=== PATIENT | male | born 1955 | race Caucasian/White ===

== ENCOUNTER 2018-10-21 07:01 | Inpatient (IN) ==
[2018-10-21] MEDS ORDERED: IPRATROPIUM/ALBUTEROL 3 ML AMPUL.NEB NEB ONE ×2 (07:15→08:44)
[2018-10-21 07:45] LABS: Basophils # (Auto) 0 K/mcL (0.0-0.3); Basophils % (Auto) 0.4 % (0.0-2.0); Eosinophils # (Auto) 0.1 K/mcL (0.0-0.7); Eosinophils % (Auto) 2.3 % (0.0-7.0); Granulocytes % (Auto) 81.6 % (38.0-78.0); Lymphocytes # (Auto) 0.2 K/mcL (1.5-4.8); Lymphocytes % (Auto) 5.4 % (15.5-49.0); Mean Cell Volume 95.8 fL (80.0-100.0); Mean Corpuscular HGB Conc 32.7 g/dL (31.0-36.0); Monocytes # (Auto) 0.4 K/mcL (0.1-0.9); Monocytes % (Auto) 10.3 % (1.0-12.0); Platelet Count 87 K/mcL (140-440); RBC 4.02 M/mcL (4.50-5.90); Red Cell Distribution Width 15.1 % (11.5-14.5)
--- NOTE | 2018-10-21 08:09 | XRay Report ---
INDICATION: Dyspnea. Cough. TECHNIQUE: AP chest x-ray,portable semiupright COMPARISON: Previous chest x-rays dated 04/29/2015, 04/04/2015, 02/08/2015 FINDINGS:Previous median sternotomy. There is cardiomegaly is slightly worse than on previous examinations. Pulmonary vascularity is prominent. There are septal lines. Appearance is consistent with cardiomegaly and congestive heart failure. No pulmonary parenchymal consolidation. No evidence for pneumonia. IMPRESSION: 1. Cardiomegaly 2. Interstitial pulmonary edema 3. Findings are worse since 04/29/2015 Interpreted and Authenticated by: Miguel Dewey 10/21/18
[2018-10-21 08:15] LABS: ALT/SGPT 12 U/l (0-40); Albumin 3.8 gm/dL (3.2-5.2); Albumin/Globulin Ratio 1.4 (1.0-2.3); Alkaline Phosphatase 153 U/L (39-117); Blood Urea Nitrogen 15 mg/dl (8-23)
[2018-10-21] MEDS ORDERED: methylPREDNISolone SOD SUCC 125 MG/2 ML VIAL IV ONE (09:07)
[2018-10-21] MEDS ORDERED: FUROSEMIDE 40 MG/4 ML VIAL IV ONE (09:07)
--- NOTE | 2018-10-21 09:23 | Emergency Department Note ---
SOB HPI - General Chief Complaint: Shortness of Breath/Dyspnea Stated Complaint: Shortness of breath Time Seen by Provider: 10/21/18 07:39 Source: patient Mode of arrival: ambulatory Limitations: no limitations - History of Present Illness This pleasant 62-year-old male comes emergency room with coughing that is increased and worsened. With shortness of breath. He has some chronic bronchitis/COPD for which he has some chronic cough and phlegm but there is been no change in the color of his phlegm. He takes Symbicort and has a nebulizer machine but is out of nebulizer medication. He has been doing his normal wheezing. No chest pains with this or nausea or vomiting no fevers or chills or sweats. No recent exposures. No runny nose or nasal congestion or sore throat. REVIEW OF SYSTEMS: See above. No chest pains or palpitations. No nausea or vomiting No dysuria No headaches or dizziness No anxiety or depression. - Related Data Home Medications Medication Instructions Recorded Confirmed Aspirin [Drew Chewable Aspirin] 81 mg PO DAILY 02/05/15 04/29/15 Fluticasone/Salmeterol [Advair 1 puff INH BID 02/05/15 04/29/15 250-50 Diskus] Furosemide [Lasix] 80 mg PO DAILY 02/05/15 04/29/15 Ramipril [Altace] 5 mg PO DAILY 02/05/15 04/29/15 Spironolactone [Aldactone] 25 mg PO DAILY 02/05/15 04/29/15 Gabapentin [Neurontin] 100 - 200 mg PO TID 02/07/15 04/29/15 Iron Fum/Vit C/B12-If/FA [Ferocon 1 cap PO TIDCC 02/07/15 04/29/15 Capsule] Potassium Citrate [Potassium 10 meq PO TIDCC 02/07/15 04/29/15 Citrate ER] Rivaroxaban [Xarelto] 20 mg PO QPMCC 02/07/15 04/29/15 Metoprolol Tartrate [Lopressor] 50 mg PO BID 04/29/15 04/29/15 Previous Rx's Medication Instructions Recorded Carvedilol [Coreg] 25 mg PO BIDCC tablet 02/08/15 Digoxin [Lanoxin] 125 mcg PO MOWEFR #30 tablet 02/08/15 HYDROcodone/APAP 5/325MG [[place] 1 tab PO Q4HP PRN #14 tablet 03/21/15 5/325Mg] Allergies Allergy/AdvReac Type Severity Reaction Status Date / Time amiodarone Allergy Intermediate Rash Verified 10/21/18 07:03 Past Medical History - Past Medical History Medical history: Reports: atrial fibrillation (has been cardioverted in the past.), CHF, chronic anticoagulation (XARELTO), COPD (chronic bronchitis), coronary artery disease (has had a defibrillator placed.), hyperlipidemia, hypertension, myocardial infarction, other (anaphylactic reaction (2015)). Denies: cancer, CVA, DVT, DM, hypothyroidism, pneumonia, pulmonary embolus, TIA Psychiatric history: Denies: anxiety, depression Surgical history ED: Reports: coronary bypass (CABG), herniorrhaphy - Social History smoking status: Former smoker (quit approx 2009) Alcohol use: Reports: Heavy (6-7 beer/day 10.21.2018) Drug use: Reports: none. Denies: marijuana Physical Exam Limitations: no limitations General appearance: alert, in distress (With tight wheezing coughing and mildly short of breath.) Eye: Present: EOMI ENT: normal oropharynx, mucous membranes moist Neck: Present: trachea midline. Absent: lymphadenopathy, thyromegaly Chest: Present: symmetric chest wall rise Respiratory: Present: respiratory distress (Mild increased effort), rales/crackles (Coarseness and some crackles throughout.), wheezes (Mild to moderate. Throughout.), other (decrease in volume throughout.). Absent: stridor, accessory muscle use, prolonged expiratory phase Cardiovascular: Present: irregular rhythm (but normal rate.), other (very distant.). Absent: systolic murmur, diastolic murmur Abdominal: Present: soft. Absent: distention, tenderness, guarding, rebound, rigidity, organomegaly, mass Extremities: Absent: pedal edema, pretibial edema (except right pretibial and pedal areas.), calf tenderness Back: Absent: CVA tenderness (R), CVA tenderness (L), spinous process tenderness Neurological: Present: alert, oriented X3 Psychiatric: Present: flat affect, serious, poor eye contact (only mildly) Skin: Present: warm, dry Course Vital Signs Temperature 98.5 F 10/21/18 07:01 Pulse Rate 89 10/21/18 07:01 Respiratory Rate 24 H 10/21/18 07:01 Blood Pressure 97/74 10/21/18 07:01 Pulse Oximetry (%) 95 10/21/18 07:01 Temperature 98.5 F 10/21/18 07:01 Pulse Rate 90 10/21/18 07:30 Respiratory Rate 20 10/21/18 07:30 Blood Pressure 97/74 10/21/18 07:01 Pulse Oximetry (%) 95 10/21/18 07:01 Shortness of Breath/Dyspnea - [facility] Narrative Medical decision making narrative: 7:13 AM EKG, ACS labs, chest x-ray, DuoNeb, pro-calcitonin, lactic acid will be done because of his presentation with tight cough, wheezing, shortness of breath and medical history. EKG demonstrates old anterior MT, atrial fibrillation, flipped T waves in the lateral leads, IV conduction delay, low voltage, poor R wave progression but no specific changes from previous. 8:45 AM Initial DuoNeb was helpful and labs of come back with pancytopenia, lactic acid of 1.1, sodium 128 with chloride 89, bilirubin is 2.3 which is elevated but this is old and chronic. Alkaline phosphatase is 153 which is a new elevation for this. Pro-calcitonin was less than 0.10 and creatinine was 0.8. BNP was elevated into the 5000 range and previously was in the 1999. Chest x-ray demonstrates cardiomegaly with some interstitial pulmonary edema. 9:00 AM Second DuoNeb some helpful and reexam reveals decrease in wheezes and crackles i.e. with only 10-20% remaining of what he presented with. Blood pressure rem ains in the mid to upper 90s systolic which reportedly is common or normal for him. I discussed with Dr. Mcnally who will be taking over patient's care because of transfer at time of shift change. Consideration for Solu-Medrol IV which was ordered. Consideration for furosemide and a lower dose at 40 mg was discussed and ordered. Nursing staff also brought up the question from patient's of hyponatremia which has happened before quite significantly due to IV Lasix. She will let Dr. Mcnally now and discuss this. Patient's wanted us to know that patient has a nebulizer at home but has no medications for it currently. - Medical Records Medical records reviewed: Yes I reviewed the patient's medical records. - Lab Data Lab results reviewed: Yes I reviewed the patient's lab results. Result diagrams: 10/21/18 07:23 10/21/18 07:23 Lab Results 10/21/18 10/21/18 10/21/18 Range/Units 07:23 07:23 07:23 WBC 4.2 L (4.5-11.0) K/mcL RBC 4.02 L (4.50-5.90) M/mcL Hgb 12.6 L (13.5-16.5) g/dL Hct 38.5 L (41.0-55.0) % MCV 95.8 (80.0-100.0) fL MCH 31.3 (26.0-34.0) pg MCHC 32.7 (31.0-36.0) g/dL RDW 15.1 H (11.5-14.5) % Plt Count 87 L (140-440) K/mcL MPV 9.5 (7.4-10.4) fL Gran % 81.6 H (38.0-78.0) % Lymph % (Auto) 5.4 L (15.5-49.0) % [place] % (Auto) 10.3 (1.0-12.0) % Eos % (Auto) 2.3 (0.0-7.0) % Baso % (Auto) 0.4 (0.0-2.0) % Gran # 3.4 (1.8-8.0) K/mcL Lymph # (Auto) 0.2 L (1.5-4.8) K/mcL [place] # (Auto) 0.4 (0.1-0.9) K/mcL Eos # (Auto) 0.1 (0.0-0.7) K/mcL Baso # (Auto) 0 (0.0-0.3) K/mcL VBG Lactic Acid (0.5-2.0) mmol/L Sodium 128 L (133-145) mmol/L Potassium 3.8 (3.3-5.1) mmol/L Chloride 89 L (96-108) mmol/L Carbon Dioxide 27 (22-30) mmol/L Anion Gap 12.0 (8-16) BUN 15 (8-23) mg/dl Creatinine 0.8 (0.7-1.2) mg/dl GFR Calculation 96 Glucose 97 (70-105) mg/dL Calcium 9.0 (8.6-10.4) mg/dl Total Bilirubin 2.3 H (0.0-1.0) mg/dL AST 27 (0-37) U/l ALT 12 (0-40) U/l Alkaline Phosphatase 153 H (39-117) U/L Troponin T (0-0.03) ng/ml NT-Pro-B Natriuret Pep 5643.0 H (0-125) pg/ml Total Protein 6.5 (5.9-8.4) gm/dL Albumin 3.8 (3.2-5.2) gm/dL Globulin 2.7 (2.2-3.7) gm/dL Albumin/Globulin Ratio 1.4 (1.0-2.3) Procalcitonin < 0.10 (<0.10) ng/mL 10/21/18 10/21/18 Range/Units 07:23 07:23 WBC (4.5-11.0) K/mcL RBC (4.50-5.90) M/mcL Hgb (13.5-16.5) g/dL Hct (41.0-55.0) % MCV (80.0-100.0) fL MCH (26.0-34.0) pg MCHC (31.0-36.0) g/dL RDW (11.5-14.5) % Plt Count (140-440) K/mcL MPV (7.4-10.4) fL Gran % (38.0-78.0) % Lymph % (Auto) (15.5-49.0) % [place] % (Auto) (1.0-12.0) % Eos % (Auto) (0.0-7.0) % Baso % (Auto) (0.0-2.0) % Gran # (1.8-8.0) K/mcL Lymph # (Auto) (1.5-4.8) K/mcL [place] # (Auto) (0.1-0.9) K/mcL Eos # (Auto) (0.0-0.7) K/mcL Baso # (Auto) (0.0-0.3) K/mcL VBG Lactic Acid 1.1 (0.5-2.0) mmol/L Sodium (133-145) mmol/L Potassium (3.3-5.1) mmol/L Chloride (96-108) mmol/L Carbon Dioxide (22-30) mmol/L Anion Gap (8-16) BUN (8-23) mg/dl Creatinine (0.7-1.2) mg/dl GFR Calculation Glucose (70-105) mg/dL Calcium (8.6-10.4) mg/dl Total Bilirubin (0.0-1.0) mg/dL AST (0-37) U/l ALT (0-40) U/l Alkaline Phosphatase (39-117) U/L Troponin T 0.01 (0-0.03) ng/ml NT-Pro-B Natriuret Pep (0-125) pg/ml Total Protein (5.9-8.4) gm/dL Albumin (3.2-5.2) gm/dL Globulin (2.2-3.7) gm/dL Albumin/Globulin Ratio (1.0-2.3) Procalcitonin (<0.10) ng/mL - Radiology Data Radiology results reviewed: Yes I reviewed the patient's radiology results. - EKG Data EKG results narrative: Old anterior MT, atrial fibrillation, no lateral lead flipped T's, intraventricular conduction delay, low voltage, poor R wave progression, but no specific changes. This EKG will be read by a go cart mechanic. Disposition Pt seen by TURKEY CLEANER/PA only: No Disposition: Still a Patient Condition: Fair Referrals: Marisol Rowan MD [Primary Care Provider] -
--- NOTE | 2018-10-21 10:37 | Emergency Department Note ---
SOB HPI - General Chief Complaint: Shortness of Breath/Dyspnea Stated Complaint: Shortness of breath Time Seen by Provider: 10/21/18 07:39 Source: patient Mode of arrival: ambulatory Limitations: no limitations - History of Present Illness Patient is checked out to me by Dr. Finn at shift change. He continues to have shortness of breath despite 2 breathing treatments with DuoNeb. Solu- Medrol was given as well furosemide. Per nursing report is concerned that extra furosemide because his chronic low sodium to drop even further and cause significant confusion as it has in the past He is to see Dr. Martinez in [place] for cardiology but he has since retired. He does have a new visit plan though with a new doctor - Related Data Home Medications Medication Instructions Recorded Confirmed Aspirin [Drew Chewable Aspirin] 81 mg PO DAILY 02/05/15 10/21/18 Fluticasone/Salmeterol [Advair 1 puff INH BID 02/05/15 04/29/15 250-50 Diskus] Furosemide [Lasix] 80 mg PO DAILY 02/05/15 04/29/15 Ramipril [Altace] 5 mg PO DAILY 02/05/15 04/29/15 Spironolactone [Aldactone] 25 mg PO DAILY 02/05/15 04/29/15 Gabapentin [Neurontin] 100 - 200 mg PO TID 02/07/15 04/29/15 Iron Fum/Vit C/B12-If/FA [Ferocon 1 cap PO TIDCC 02/07/15 04/29/15 Capsule] Potassium Citrate [Potassium 10 meq PO TIDCC 02/07/15 04/29/15 Citrate ER] Rivaroxaban [Xarelto] 20 mg PO QPMCC 02/07/15 04/29/15 Metoprolol Tartrate [Lopressor] 50 mg PO BID 04/29/15 04/29/15 Previous Rx's Medication Instructions Recorded Carvedilol [Coreg] 25 mg PO BIDCC tablet 02/08/15 Digoxin [Lanoxin] 125 mcg PO MOWEFR #30 tablet 02/08/15 HYDROcodone/APAP 5/325MG [[place] 1 tab PO Q4HP PRN #14 tablet 03/21/15 5/325Mg] Allergies Allergy/AdvReac Type Severity Reaction Status Date / Time amiodarone Allergy Intermediate Rash Verified 10/21/18 07:03 Past Medical History - Past Medical History Medical history: Reports: atrial fibrillation (has been cardioverted in the past.), CHF, chronic anticoagulation (XARELTO), COPD (chronic bronchitis), coronary artery disease (has had a defibrillator placed.), hyperlipidemia, hypertension, myocardial infarction (With cardiomyopathy), other (anaphylactic reaction (2015)). Denies: cancer, CVA, DVT, DM, hypothyroidism, pneumonia, pulmonary embolus, TIA Psychiatric history: Denies: anxiety, depression Surgical history ED: Reports: coronary bypass (CABG), herniorrhaphy, pacemaker/AICD - Social History smoking status: Former smoker (quit approx 2009) Alcohol use: Reports: Heavy (6-7 beer/day 10.21.2018) Drug use: Reports: none. Denies: marijuana Physical Exam On repeat exam patient's lungs are much more clear but he does have significant tachypneic and tachycardia. He can speak in full sentences but does have to pause for breath. He appears globally weak and his blood pressures are low n ormal Limitations: no limitations General appearance: alert, in distress (With tight wheezing coughing and mildly short of breath.) Course Vital Signs Temperature 98.5 F 10/21/18 07:01 Pulse Rate 89 10/21/18 07:01 Respiratory Rate 24 H 10/21/18 07:01 Blood Pressure 97/74 10/21/18 07:01 Pulse Oximetry (%) 95 10/21/18 07:01 Temperature 98.5 F 10/21/18 07:01 Pulse Rate 90 10/21/18 07:30 Respiratory Rate 20 10/21/18 07:30 Blood Pressure 97/74 10/21/18 07:01 Pulse Oximetry (%) 95 10/21/18 07:01 Shortness of Breath/Dyspnea - Lab Data Lab results reviewed: Yes I reviewed the patient's lab results. Result diagrams: 10/21/18 07:23 10/21/18 07:23 Lab Results 10/21/18 10/21/18 10/21/18 Range/Units 07:23 07:23 07:23 WBC 4.2 L (4.5-11.0) K/mcL RBC 4.02 L (4.50-5.90) M/mcL Hgb 12.6 L (13.5-16.5) g/dL Hct 38.5 L (41.0-55.0) % MCV 95.8 (80.0-100.0) fL MCH 31.3 (26.0-34.0) pg MCHC 32.7 (31.0-36.0) g/dL RDW 15.1 H (11.5-14.5) % Plt Count 87 L (140-440) K/mcL MPV 9.5 (7.4-10.4) fL Gran % 81.6 H (38.0-78.0) % Lymph % (Auto) 5.4 L (15.5-49.0) % [facility] % (Auto) 10.3 (1.0-12.0) % Eos % (Auto) 2.3 (0.0-7.0) % Baso % (Auto) 0.4 (0.0-2.0) % Gran # 3.4 (1.8-8.0) K/mcL Lymph # (Auto) 0.2 L (1.5-4.8) K/mcL [facility] # (Auto) 0.4 (0.1-0.9) K/mcL Eos # (Auto) 0.1 (0.0-0.7) K/mcL Baso # (Auto) 0 (0.0-0.3) K/mcL VBG Lactic Acid (0.5-2.0) mmol/L Sodium 128 L (133-145) mmol/L Potassium 3.8 (3.3-5.1) mmol/L Chloride 89 L (96-108) mmol/L Carbon Dioxide 27 (22-30) mmol/L Anion Gap 12.0 (8-16) BUN 15 (8-23) mg/dl Creatinine 0.8 (0.7-1.2) mg/dl GFR Calculation 96 Glucose 97 (70-105) mg/dL Calcium 9.0 (8.6-10.4) mg/dl Total Bilirubin 2.3 H (0.0-1.0) mg/dL AST 27 (0-37) U/l ALT 12 (0-40) U/l Alkaline Phosphatase 153 H (39-117) U/L Troponin T (0-0.03) ng/ml NT-Pro-B Natriuret Pep 5643.0 H (0-125) pg/ml Total Protein 6.5 (5.9-8.4) gm/dL Albumin 3.8 (3.2-5.2) gm/dL Globulin 2.7 (2.2-3.7) gm/dL Albumin/Globulin Ratio 1.4 (1.0-2.3) Procalcitonin < 0.10 (<0.10) ng/mL Digoxin Dose Digox Last Dose Time 10/21/18 10/21/18 10/21/18 Range/Units 07:23 07:23 07:23 WBC (4.5-11.0) K/mcL RBC (4.50-5.90) M/mcL Hgb (13.5-16.5) g/dL Hct (41.0-55.0) % MCV (80.0-100.0) fL MCH (26.0-34.0) pg MCHC (31.0-36.0) g/dL RDW (11.5-14.5) % Plt Count (140-440) K/mcL MPV (7.4-10.4) fL Gran % (38.0-78.0) % Lymph % (Auto) (15.5-49.0) % [facility] % (Auto) (1.0-12.0) % Eos % (Auto) (0.0-7.0) % Baso % (Auto) (0.0-2.0) % Gran # (1.8-8.0) K/mcL Lymph # (Auto) (1.5-4.8) K/mcL [facility] # (Auto) (0.1-0.9) K/mcL Eos # (Auto) (0.0-0.7) K/mcL Baso # (Auto) (0.0-0.3) K/mcL VBG Lactic Acid 1.1 (0.5-2.0) mmol/L Sodium (133-145) mmol/L Potassium (3.3-5.1) mmol/L Chloride (96-108) mmol/L Carbon Dioxide (22-30) mmol/L Anion Gap (8-16) BUN (8-23) mg/dl Creatinine (0.7-1.2) mg/dl GFR Calculation Glucose (70-105) mg/dL Calcium (8.6-10.4) mg/dl Total Bilirubin (0.0-1.0) mg/dL AST (0-37) U/l ALT (0-40) U/l Alkaline Phosphatase (39-117) U/L Troponin T 0.01 (0-0.03) ng/ml NT-Pro-B Natriuret Pep (0-125) pg/ml Total Protein (5.9-8.4) gm/dL Albumin (3.2-5.2) gm/dL Globulin (2.2-3.7) gm/dL Albumin/Globulin Ratio (1.0-2.3) Procalcitonin (<0.10) ng/mL Digoxin Dose Not Reportable Digox Last Dose Time Not Reportable - Radiology Data Radiology results reviewed: Yes I reviewed the patient's radiology results. Chest x-ray shows no acute infiltrate but stigmata of cardiomegaly, CABG, and pacemaker - EKG Data EKG attestation: Yes I reviewed and interpreted this EKG. EKG results narrative: I briefly reviewed his EKG-atrial fibrillation with multiple abnormalities. I do not see evidence of acute ischemia Disposition Pt seen by REACHER/PA only: No Clinical Impression: Acute exacerbation of chronic obstructive airways disease Congestive heart failure Qualifiers: Heart failure type: unspecified Heart failure chronicity: acute on chronic Qualified Code(s): I50.9 - Heart failure, unspecified Summary: Although he has improved with furosemide and DuoNeb he is still short of breath weak tachycardic and tachypneic. Perhaps mildly hypotensive as well. I do not feel comfortable letting him go home in this state-he needs careful treatment with monitoring because of fragile sodium status for congestive heart failure and COPD exacerbation I discussed the situation with Dr. Maguire, who agreed to accept the patient for further care and evaluation. Disposition: Xfer As Inpt ([facility]) Condition: Fair Referrals: Marisol Rowan MD [Primary Care Provider] -
--- NOTE | 2018-10-21 12:08 | Internal Med History&Physical ---
Medical - H&P: [facility] Patient information: Note initiated : 10/21/18 at 12:03 pm Service Date, if different from initiated Date: [] Patient: Irvin Cannon a 62 y/o M admitted on for SOB . Chief Complaint: [] History of present illness: Mr. Cannon is a 62 year old M Resents with shortness of breath and cough. Patient has history of systolic heart failure COPD CAD hypertension peripheral vascular disease. He states that about 3 days ago he started developing shortness of breath which is progressed every day. He also developed a cough couple days ago which was clear and milky. He is denied any fevers or chills. No mucopurulent sputum. He states his legs especially his right leg have become more swollen for the pas t couple weeks. He feels his weight has been stable at 185. In the ED is lungs sounds per ED staff included rales and wheezing. He received several DuoNeb treatments the first when he said did not make any difference. He also received Lasix. His lung sounds have improved and his breathing is im proved. Denies chest pain other than a little bit of chest wall from the cough. But given his continued labored breathing felt that he needed to be treated in the hospital. Patient states he has been taking all his medications and has not missed any. He does admit to orthopnea worsening over the past couple days, he has had sleep almost upright. He has thrombocytopenia and is aware that he has low platelets. I discussed alcohol cessation with him. Review of Systems: Pertinent positives as above. Denies headache/fever/chills/nausea/vomiting/chest or abdominal pain/diarrhea. Remaining 10 point review of systems reviewed negative Medical - H&P: [facility] Medical history: Medical History (Last Updated 10/21/18 @ 09:35 by Pipo Finn DO) Chronic anticoagulation (Acute) Atrial fibrillation, chronic (Acute) Hypertension, essential (Acute) Hyperlipidemia (Acute) History of myocardial infarction (Acute) History of CHF (congestive heart failure) (Acute) Acute hepatitis (Acute) Liver function failure (Acute) Heart failure, systolic, with acute decompensation (Acute) Abdominal pain (Acute) Muscle strain (Acute) Allergic reaction (Acute) Allergic reaction (Acute) Anaphylaxis (Acute) Surgical history: CABG Defibrillator Hernia repair Family history: Mother heart disease Father heart disease Social history: Patient quit smoking 5 years ago Drinks at least 6-7 beers per day Denies drug use Lives at home with his Medical - H&P: Meds Home Medications Medication Instructions Recorded Confirmed Type Aspirin [Drew Chewable Aspirin] 81 mg PO DAILY 02/05/15 10/21/18 History Fluticasone/Salmeterol [Advair 1 puff INH BID 02/05/15 04/29/15 History 250-50 Diskus] Furosemide [Lasix] 40 mg PO DAILY 02/05/15 10/21/18 History Ramipril [Altace] 5 mg PO DAILY 02/05/15 04/29/15 History Spironolactone [Aldactone] 25 mg PO DAILY 02/05/15 04/29/15 History Gabapentin [Neurontin] 100 - 200 mg PO TID 02/07/15 04/29/15 History Iron Fum/Vit C/B12-If/FA [Ferocon 1 cap PO TIDCC 02/07/15 04/29/15 History Capsule] Potassium Citrate [Potassium 10 meq PO DAILY 02/07/15 10/21/18 History Citrate ER] Rivaroxaban [Xarelto] 20 mg PO DAILY 02/07/15 10/21/18 History HYDROcodone/APAP 5/325MG [[place] 1 tab PO Q4HP PRN #14 tablet 03/21/15 04/29/15 Rx 5/325Mg] Metoprolol Tartrate [Lopressor] 50 mg PO BID 04/29/15 04/29/15 History Budesonide/Formoterol Fumarate 2 puff IH BID 10/21/18 10/21/18 History [Symbicort 160-4.5 Mcg Inhaler] Carvedilol [Coreg] 25 mg PO BID 10/21/18 10/21/18 History Digoxin [Lanoxin] 125 mcg PO DAILY 10/21/18 10/21/18 History Doxycycline Hyclate [Vibramycin] 100 mg PO DAILY 10/21/18 10/21/18 History Magnesium Oxide 400 mg PO DAILY 10/21/18 10/21/18 History Sacubitril/Valsartan [Entresto 24 1 tab PO BID 10/21/18 10/21/18 History mg-26 mg Tablet] Simvastatin [Zocor] 20 mg PO HS 10/21/18 10/21/18 History Zolpidem Tartrate [Ambien] 10 mg PO HSP PRN 10/21/18 10/21/18 History Allergies Allergy/AdvReac Type Severity Reaction Status Date / Time amiodarone Allergy Intermediate Rash Verified 10/21/18 07:03 IV antibiotics Allergy Uncoded 10/21/18 11:10 Medical - H&P: Exam - Constitutional Vitals: Temp Pulse Resp BP Pulse Ox 98.5 F 150 H 32 H 103/71 95 10/21/18 07:01 10/21/18 09:46 10/21/18 11:42 10/21/18 09:46 10/21/18 09:46 Exam: General: Alert, Awake, No acute Distress Eyes/N/T: EOMI, PEERL, Head/Neck: neck supple, normocephalic atraumatic CV: Irregular, normal s1/s2 Pulm: Diminished breath sounds at the bases, prolonged expiratory phase Abd: soft, nontender, protuberant+BS x4 Ext: no clubbing/cyanosis, b/l LE 2-3+ Neuro: Alert, no focal deficits, moves all extremities, CN 2-12 grossly intact, symmetrical strength b/l upper/lower, sensations intact b/l upper/lower Skin: warm/dry, mild jaundice Medical - H&P: Reslt - Labs CBC & Chem 7: 10/21/18 07:23 10/21/18 07:23 Labs: Short CBC 10/21/18 Range/Units 07:23 WBC 4.2 L (4.5-11.0) K/mcL Hgb 12.6 L (13.5-16.5) g/dL Hct 38.5 L (41.0-55.0) % Plt Count 87 L (140-440) K/mcL BMP 10/21/18 07:23 Sodium 128 L Potassium 3.8 Chloride 89 L Carbon Dioxide 27 BUN 15 Creatinine 0.8 Glucose 97 Calcium 9.0 Cardiac Enzymes 10/21/18 Range/Units 07:23 Troponin T 0.01 (0-0.03) ng/ml Liver Function 10/21/18 Range/Units 07:23 Total Bilirubin 2.3 H (0.0-1.0) mg/dL AST 27 (0-37) U/l ALT 12 (0-40) U/l Alkaline Phosphatase 153 H (39-117) U/L Albumin 3.8 (3.2-5.2) gm/dL - Impressions Chest x-ray with pulmonary edema Medical - H&P: A/P - Narrative A/P Narrative: A: *Acute on chronic systolic heart failure: Likely from continued alcohol abuse *Pulmonary edema: *Dyspnea: 2/2 above *Afib: On Xarelto and beta-paola *HTN: *COPD(not on home O2): *CAD w/CABG: *iCMP, w/defibrillator *Peripheral vascular disease: *Alcohol abuse: With likely some degree of liver disease with elevated bilirubin and thrombocytopenia. *Hyponatremia, chronic: likley from etoh abuse P: -IV Lasix -Monitor I's and O's, weights, UOP -cont home Dig -Clarify home medications, what BB and other HTN meds -cont home ASA/Satatin -CIWA and prn benzo, vitamins - - -Alcohol cessation -LASHON's -ppx: Xarelto
[2018-10-21] MEDS ORDERED: POLYETHYLENE GLYCOL 3350 17 GM PACKET PO PRN (13:01)
[2018-10-21] MEDS ORDERED: IPRATROPIUM/ALBUTEROL 3 ML AMPUL.NEB NEB PRN (13:01)
[2018-10-21] MEDS ORDERED: ACETAMINOPHEN 325 MG TABLET PO PRN (13:01)
[2018-10-21] MEDS ORDERED: ONDANSETRON 4 MG/2 ML VIAL IV PRN (13:01)
[2018-10-21] MEDS ORDERED: ZOLPIDEM TARTRATE 10 MG PO PRN (13:01)
[2018-10-21] MEDS ORDERED: POTASSIUM CHLORIDE 40 MEQ in DEXTROSE 5% IN WATER 500 ML IV PRN (13:01)
[2018-10-21] MEDS ORDERED: METOPROLOL TARTRATE 5 MG/5 ML VIAL IV PRN (13:01)
[2018-10-21] MEDS ORDERED: PROCHLORPERAZINE 10 MG/2 ML VIAL IV PRN (13:01)
[2018-10-21] MEDS ORDERED: POTASSIUM CHLORIDE 20 MEQ TABLET PO PRN (13:01)
[2018-10-21] MEDS ORDERED: SENNOSIDES 1 TABLET PO PRN (13:01)
[2018-10-21] MEDS ORDERED: cloNIDine HCL 0.1 MG TABLET PO PRN (13:01)
[2018-10-21] MEDS ORDERED: LORazepam 2 MG/ML VIAL IV PRN (13:01)
[2018-10-21] MEDS ORDERED: MAGNESIUM SULFATE 2 GM/50 ML BAG IV PRN (13:01)
[2018-10-21] MEDS: chlordiazePOXIDE 25 MG CAPSULE PO PRN (14:25)
[2018-10-21] MEDS: MULTIVIT,THER IRON,CA,FA & MIN 1 TABLET PO SCH (14:25)
[2018-10-21] MEDS: FOLIC ACID 1 MG TABLET PO SCH (14:25)
[2018-10-21] MEDS: 0.9 % SODIUM CHLORIDE 10 ML SYRINGE IV SCH ×4 (14:26→21:49)
[2018-10-21] MEDS: THIAMINE 100 MG TABLET PO SCH (14:26)
[2018-10-21] MEDS ORDERED: ZOLPIDEM 5 MG TABLET PO PRN (15:15)
[2018-10-21] MEDS: FUROSEMIDE 40 MG/4 ML VIAL IV SCH (17:51)
[2018-10-21] MEDS: SODIUM CHLORIDE 1 GM TABLET PO SCH ×2 (17:51→21:48)
[2018-10-21] MEDS ORDERED: CARVEDILOL 12.5 MG TABLET PO SCH (21:00)
[2018-10-21] MEDS ORDERED: VALSARTAN PO SCH (21:00)
[2018-10-21] MEDS ORDERED: SACUBITRIL PO SCH (21:00)
[2018-10-21] MEDS: Budesonide/Formoterol Fumarate [Symbicort 160-4.5 MCG] Inhaler INH SCH (21:48)
[2018-10-21] MEDS: SIMVASTATIN 20 MG TABLET PO SCH (21:48)
[2018-10-22 05:30] LABS: Basophils # (Auto) 0 K/mcL (0.0-0.3); Basophils % (Auto) 0 % (0.0-2.0); Eosinophils # (Auto) 0 K/mcL (0.0-0.7); Eosinophils % (Auto) 0 % (0.0-7.0); Granulocytes % (Auto) 94.6 % (38.0-78.0); Lymphocytes # (Auto) 0.1 K/mcL (1.5-4.8); Lymphocytes % (Auto) 2.7 % (15.5-49.0); Mean Cell Volume 96.3 fL (80.0-100.0); Mean Corpuscular HGB Conc 32.9 g/dL (31.0-36.0); Monocytes # (Auto) 0.1 K/mcL (0.1-0.9); Monocytes % (Auto) 2.7 % (1.0-12.0); Platelet Count 98 K/mcL (140-440); RBC 3.88 M/mcL (4.50-5.90); Red Cell Distribution Width 15.1 % (11.5-14.5)
[2018-10-22] MEDS: 0.9 % SODIUM CHLORIDE 10 ML SYRINGE IV SCH ×6 (05:55→20:39)
[2018-10-22 06:14] LABS: ALT/SGPT 12 U/l (0-40); Albumin 3.6 gm/dL (3.2-5.2); Albumin/Globulin Ratio 1.4 (1.0-2.3); Alkaline Phosphatase 153 U/L (39-117); Bilirubin,Direct 0.9 mg/dL (0.0-0.3); Blood Urea Nitrogen 21 mg/dl (8-23); Gamma Glutamyl Transpeptidase 169 U/L (8-61); Uric Acid 6.8 mg/dL (2.5-8.0)
--- NOTE | 2018-10-22 07:24 | Internal Med Progress Note ---
Medical - PN: Subj Patient information: Note initiated : 10/22/18 at 7:20 am Service Date, if different from initiated Date: [] Patient: Irvin Cannon a 62 y/o M admitted on 10/21/18 for SOB . Chief Complaint: [] Interval history: Mr. Cannon is a 62 year old M Resents with shortness of breath and cough. Patient has history of systolic heart failure COPD CAD hypertension peripheral vascular disease. He states that about 3 days ago he started developing shortness of breath which is progressed every day. He also developed a cough couple days ago which was clear and milky. He is denied any fevers or chills. No mucopurulent sputum. He states his legs especially his right leg have become more swollen for the past couple weeks. He feels his weight has been stable at 185. In the ED is lungs sounds per ED staff included rales and wheezing. He received several DuoNeb treatments the first when he said did not make any difference. He also received Lasix. His lung sounds have improved and his breathing is impr mata. Denies chest pain other than a little bit of chest wall from the cough. But given his continued labored breathing felt that he needed to be treated in the hospital. Patient states he has been taking all his medications and has not missed any. He does admit to orthopnea worsening over the past couple days, he has had sleep almost upright. He has thrombocytopenia and is aware that he has low platelets. I discussed alcohol cessation with him. 10/22 Feeling much better today. Had good diuresis. Denies any shortness of breath at this time. Does have continued cough but is improving. Low CIWA scores Review of Systems: denies headache/fever/chills/nausea/vomiting/chest or abdominal pain/diarrhea. Otherwise see above. - Constitutional Vitals: Vital Signs Temp Pulse Resp BP Pulse Ox 98.1 F 111 H 18 93/55 92 10/21/18 16:15 10/21/18 18:10 10/21/18 18:10 10/22/18 04:01 10/22/18 04:01 Period Temp Pulse Resp BP Sys/Cheema Pulse Ox Last 24 Hr 98.0 F-98.5 F 62-150 15-32 85-115/52-87 90-100 Intake and Output 10/21/18 10/22/18 10/22/18 21:59 05:59 13:59 Intake Total 240 Output Total 500 1500 Balance -260 -1500 Weight 83.915 kg Intake & Output: Intake & Output 10/21/18 10/22/18 10/22/18 21:59 05:59 13:59 Intake Total 240 Output Total 500 1500 Balance -260 -1500 Weight 83.915 kg Intake: Oral 240 Output: Void Amount 500 1500 Other: Meal Dinner Percent of Meal Consumed 100% Feeding Ability Independent # Voids 1 Exam: General: Alert, Awake, No acute Distress Eyes/N/T: EOMI, Head/Neck: neck supple, CV: Irregular, normal s1/s2 Pulm: better aeration, mild rales and occasional wheeze, prolonged expiratory phase Abd: soft, nontender, protuberant+BS x4 Ext: no clubbing/cyanosis, b/l LE 1+ much improved Neuro: Alert, no focal deficits, moves all extremities, Skin: warm/dry, mild jaundice Medical - PN: Obj Da - Labs CBC & Chem 7: 10/22/18 03:35 10/22/18 03:35 Labs: Abnormal Lab Results 10/22/18 10/22/18 10/21/18 03:35 03:35 07:23 WBC 3.8 L RBC 3.88 L Hgb 12.3 L Hct 37.3 L RDW 15.1 H Plt Count 98 L Gran % 94.6 H Lymph % (Auto) 2.7 L Lymph # (Auto) 0.1 L Sodium 128 L Chloride 92 L 89 L Glucose 138 H Total Bilirubin 2.0 H 2.3 H Direct Bilirubin 0.9 H GGT 169 H Alkaline Phosphatase 153 H 153 H NT-Pro-B Natriuret Pep 5643.0 H 10/21/18 07:23 WBC 4.2 L RBC 4.02 L Hgb 12.6 L Hct 38.5 L RDW 15.1 H Plt Count 87 L Gran % 81.6 H Lymph % (Auto) 5.4 L Lymph # (Auto) 0.2 L Sodium Chloride Glucose Total Bilirubin Direct Bilirubin GGT Alkaline Phosphatase NT-Pro-B Natriuret Pep Meds: Medications Acetaminophen (Tylenol) 650 mg PO Q6HP PRN PRN Reason: PAIN/FEVER > 101 Albuterol/Ipratropium (Duoneb) 3 ml NEB Q4HP PRN PRN Reason: Shortness Of Breath Aspirin (Aspirin) 81 mg PO DAILY [facility] Carvedilol (Coreg) 25 mg PO BID [facility] Last Admin: 10/21/18 21:48 Dose: 25 mg Documented by: Chlordiazepoxide HCl (Librium) 50 mg PO Q4HP PRN PRN Reason: Alcohol Withdrawal Last Admin: 10/21/18 14:25 Dose: 50 mg Documented by: Clonidine HCl (Catapres) 0.1 mg PO Q4HP PRN PRN Reason: Alcohol Withdrawal Digoxin (Lanoxin) 125 mcg PO DAILY [facility] Folic Acid (Folic Acid) 1 mg PO DAILY [facility] Last Admin: 10/21/18 14:25 Dose: 1 mg Documented by: Furosemide (Lasix) 40 mg IV BIDD [facility] Last Admin: 10/21/18 17:51 Dose: 40 mg Documented by: Potassium Chloride 40 meq/ (Dextrose) 520 mls @ 130 mls/hr IV ONCE PRN PRN Reason: Potassium < 3 Magnesium Sulfate (Magnesium Sulfate) 2 gm in 50 mls @ 50 mls/hr IV ONCE PRN PRN Reason: Magnesium </= 1.6 Iron Carb/Multivit/Condon/Folic Acid (Multivitamin W/Minerals) 1 tab PO DAILY [facility] Last Admin: 10/21/18 14:25 Dose: 1 tab Documented by: Lorazepam (Ativan) 0 mg IV Q4HP PRN; Protocol PRN Reason: Alcohol Withdrawal Magnesium Oxide (Magnesium Oxide) 400 mg PO DAILY [facility] Metoprolol Tartrate (Lopressor) 5 mg IV Q2HP PRN PRN Reason: Tachyarrhythmias HR>110 Last Admin: 10/21/18 17:47 Dose: 5 mg Documented by: Ondansetron HCl (Zofran) 4 mg IV Q4HP PRN PRN Reason: Nausea And Vomiting Budesonide/Formoterol Fumarate [Symbicort 160-4.5 Mcg] Inhaler 2 dose INH BID [facility] Last Admin: 10/21/18 21:48 Dose: Not Given Documented by: Sacubitril/Valsartan [Entresto 24 Mg-26 Mg] Tablet 1 dose PO BID [facility] Last Admin: 10/21/18 21:48 Dose: Not Given Documented by: Polyethylene Glycol (Miralax) 17 gm PO DAILYP PRN PRN Reason: Constipation Potassium Chloride (Kdur) 40 meq PO ONCE PRN PRN Reason: Potssium is 3-3.5 Potassium Chloride (Kdur) 40 meq PO ONCE PRN PRN Reason: Potassium < 3 Potassium Citrate (Potassium Citrate) 10 meq PO QAC [facility] Prochlorperazine (Compazine) 10 mg IV Q6HP PRN PRN Reason: Nausea And Vomiting Rivaroxaban (Xarelto) 20 mg PO DAILY [facility] Senna (Senokot) 2 tab PO HSP PRN PRN Reason: Constipation Simvastatin (Zocor) 20 mg PO HS [facility] Last Admin: 10/21/18 21:48 Dose: 20 mg Documented by: Sodium Chloride (Saline Flush) 10 ml IV Q8 [facility] Last Admin: 10/22/18 05:55 Dose: 10 ml Documented by: Sodium Chloride (Saline Flush) 10 ml IV Q8 [facility] Last Admin: 10/22/18 05:55 Dose: Not Given Documented by: Sodium Chloride (Sodium Chloride) 1 gm PO TID [facility] Stop: 10/22/18 09:01 Last Admin: 10/21/18 21:48 Dose: 1 gm Documented by: Thiamine HCl (Vitamin B1) 100 mg PO QDAY [facility] Last Admin: 10/21/18 14:26 Dose: 100 mg Documented by: Zolpidem Tartrate (Ambien) 10 mg PO HSP PRN PRN Reason: Insomnia Medical - PN: A/P - Time Spent With Patient Total time spent is greater than 50% in coordination of care (as documented) at patient's floor/unit and/or counseling patient: - Narrative A/P Narrative: A: *Acute on chronic systolic heart failure: pt continuing to abuse alcohol -good diuresis *Pulmonary edema: *Dyspnea: 2/2 above *Afib: On Xarelto and beta-paola *HTN: *COPD(not on home O2): *CAD w/CABG: *iCMP, w/defibrillator: *Peripheral vascular disease: *Alcohol abuse: With likely some degree of liver disease with elevated bilirubin and thrombocytopenia. *Hyponatremia, chronic: likely from chronic etoh with poor diet -improved P: -IV Lasix transition to PO -Monitor I's and O's, weights, UOP -cont home Dig -Clarify home medications, what BB is he on (coreg or lopressor ) and other HTN meds, reduce meds given low BP -cont home ASA/Satatin -CIWA and prn benzo, vitamins - -Alcohol cessation counseling -LASHON's -ppx: Xarelto Medical - PN: Qual - VTE Deep Vein Thrombosis/Pulmonary Embolism Present on Admission: No
[2018-10-22] MEDS: MAGNESIUM OXIDE 400 MG TABLET PO SCH (08:40)
[2018-10-22] MEDS: ASPIRIN 81 MG TAB.CHEW PO SCH (08:40)
[2018-10-22] MEDS: MULTIVIT,THER IRON,CA,FA & MIN 1 TABLET PO SCH (08:40)
[2018-10-22] MEDS: FOLIC ACID 1 MG TABLET PO SCH (08:41)
[2018-10-22] MEDS: FUROSEMIDE 40 MG/4 ML VIAL IV SCH ×2 (08:41→16:00)
[2018-10-22] MEDS: DIGOXIN 125 MCG TABLET PO SCH (08:41)
[2018-10-22] MEDS: POTASSIUM CHLORIDE 20 MEQ TABLET PO PRN (08:43)
[2018-10-22] MEDS: THIAMINE 100 MG TABLET PO SCH (10:00)
[2018-10-22] MEDS: RIVAROXABAN 20 MG TABLET PO SCH (10:00)
[2018-10-22] MEDS: SODIUM CHLORIDE 1 GM TABLET PO SCH (10:00)
[2018-10-22] MEDS: Budesonide/Formoterol Fumarate [Symbicort 160-4.5 MCG] Inhaler INH SCH ×2 (10:01→20:39)
[2018-10-22] MEDS: POTASSIUM CITRATE 10 MEQ TAB.XL.24H PO SCH (10:02)
[2018-10-22] MEDS: METOPROLOL TARTRATE 25 MG TABLET PO SCH ×2 (10:04→20:38)
[2018-10-22] MEDS: SIMVASTATIN 20 MG TABLET PO SCH (20:39)
[2018-10-22] MEDS: chlordiazePOXIDE 25 MG CAPSULE PO PRN (20:40)
[2018-10-23 05:41] LABS: Basophils # (Auto) 0 K/mcL (0.0-0.3); Basophils % (Auto) 0 % (0.0-2.0); Eosinophils # (Auto) 0 K/mcL (0.0-0.7); Eosinophils % (Auto) 0 % (0.0-7.0); Lymphocytes # (Auto) 0.2 K/mcL (1.5-4.8); Lymphocytes % (Auto) 2.5 % (15.5-49.0); Mean Corpuscular HGB Conc 32.5 g/dL (31.0-36.0); Monocytes # (Auto) 0.5 K/mcL (0.1-0.9); Monocytes % (Auto) 6.5 % (1.0-12.0); Platelet Count 124 K/mcL (140-440); RBC 4.06 M/mcL (4.50-5.90); Red Cell Distribution Width 15.2 % (11.5-14.5)
[2018-10-23] MEDS: 0.9 % SODIUM CHLORIDE 10 ML SYRINGE IV SCH ×2 (05:45)
[2018-10-23 06:17] LABS: ALT/SGPT 17 U/l (0-40); Albumin 3.7 gm/dL (3.2-5.2); Albumin/Globulin Ratio 1.3 (1.0-2.3); Alkaline Phosphatase 140 U/L (39-117); Bilirubin,Direct 0.6 mg/dL (0.0-0.3); Blood Urea Nitrogen 28 mg/dl (8-23); Gamma Glutamyl Transpeptidase 164 U/L (8-61); Uric Acid 7.4 mg/dL (2.5-8.0)
[2018-10-23] MEDS: Budesonide/Formoterol Fumarate [Symbicort 160-4.5 MCG] Inhaler INH SCH (08:13)
[2018-10-23] MEDS ORDERED: VALSARTAN PO SCH (09:00)
[2018-10-23] MEDS ORDERED: FUROSEMIDE 80 MG TABLET PO SCH (09:00)
[2018-10-23] MEDS ORDERED: SACUBITRIL PO SCH (09:00)
[2018-10-23] MEDS: DIGOXIN 125 MCG TABLET PO SCH (10:21)
[2018-10-23] MEDS: POTASSIUM CHLORIDE 20 MEQ TABLET PO PRN (10:21)
[2018-10-23] MEDS: ASPIRIN 81 MG TAB.CHEW PO SCH (10:21)
[2018-10-23] MEDS: MULTIVIT,THER IRON,CA,FA & MIN 1 TABLET PO SCH (10:21)
[2018-10-23] MEDS: METOPROLOL TARTRATE 25 MG TABLET PO SCH (10:21)
[2018-10-23] MEDS: MAGNESIUM OXIDE 400 MG TABLET PO SCH (10:21)
[2018-10-23] MEDS: FOLIC ACID 1 MG TABLET PO SCH (10:21)
[2018-10-23] MEDS: POTASSIUM CITRATE 10 MEQ TAB.XL.24H PO SCH (10:24)
[2018-10-23] MEDS: THIAMINE 100 MG TABLET PO SCH (10:24)
[2018-10-23] MEDS: RIVAROXABAN 20 MG TABLET PO SCH (10:24)
--- NOTE | 2018-10-23 10:40 | Discharge Summary ---
Medical - DS: Prov Patient information: Note initiated : 10/23/18 at 10:36 am Service Date, if different from initiated Date: [] Patient: Irvin Cannon 62 y/o M admitted on 10/21/18 for SOB . Chief Complaint: [] Date of admission: 10/21/18 12:59 Discharge date: 10/23/18 Primary care physician: Marisol Rowan Consults: 10/21/18 Consult to Physician [CONS] Stat Comment: Consulting Provider: Roberto Maguire Reason For Exam: Physician to Consult Discharging clinician: Eros Wade Medical - DS: Meds - Discharge Medications Active and Home Medications: Home Medications Aspirin [Drew Chewable Aspirin] 81 mg PO DAILY 02/05/15 [History Confirmed 10/21/18 Last Taken Unknown] Furosemide [Lasix] 80 mg PO DAILY 02/05/15 [History Confirmed 10/21/18 Last Taken Unknown] Potassium Citrate [Potassium Citrate ER] 10 meq PO DAILY 02/07/15 [History Confirmed 10/21/18 Last Taken Unknown] Rivaroxaban [Xarelto] 20 mg PO DAILY 02/07/15 [History Confirmed 10/21/18 Last Taken Unknown] Budesonide/Formoterol Fumarate [Symbicort 160-4.5 Mcg Inhaler] 2 puff IH BID 10/21/18 [History Confirmed 10/21/18 Last Taken Unknown] Carvedilol [Coreg] 25 mg PO BIDCC 10/21/18 [History Confirmed 10/22/18 Last Taken Unknown] Digoxin [Lanoxin] 125 mcg PO DAILY 10/21/18 [History Confirmed 10/21/18 Last Taken Unknown] Doxycycline Hyclate [Vibramycin] 100 mg PO DAILY 10/21/18 [History Confirmed 10/21/18 Last Taken Unknown] Magnesium Oxide 400 mg PO DAILY 10/21/18 [History Confirmed 10/21/18 Last Taken Unknown] Sacubitril/Valsartan [Entresto 24 mg-26 mg Tablet] 1 tab PO BID 10/21/18 [History Confirmed 10/22/18 Last Taken Unknown] Simvastatin [Zocor] 20 mg PO HS 10/21/18 [History Confirmed 10/21/18 Last Taken Unknown] Medical - DS: Hosp Hospital course: M Mr. Cannon is a 62 year old M Resents with shortness of breath and cough. Patient has history of systolic heart failure COPD CAD hypertension peripheral vascular disease. He states that about 3 days ago he started developing shortness of breath which is progressed every day. He also developed a cough couple days ago which was clear and milky. He is denied any fevers or chills. No mucopurulent sputum. He states his legs especially his right leg have become more swollen for the past couple weeks. He feels his weight has been stable at 185. In the ED is lungs sounds per ED staff included rales and wheezing. He received several DuoNeb treatments the first when he said did not make any difference. He also received Lasix. His lung sounds have improved and his breathing is improved. Denies chest pain other than a little bit of chest wall from the cough. But given his continued labored breathing felt that he needed to be treated in the hospital. Patient states he has been taking all his medications and has not missed any. He does admit to orthopnea worsening over the past couple days, he has had sleep almost upright. He has thrombocytopenia and is aware that he has low platelets. I discussed alcohol cessation with him. 10/22 Feeling much better today. Had good diuresis. Denies any shortness of breath at this time. Does have continued cough but is improving. Low CIWA scores 10/23 Patient seen examined, no acute issues, did not sleep well, but otherwise feels a lot better, no cp or sob, feels significantly improved from baseline, last ciwa score was 2. Patient is stable for discharge In Summary Patient admitted to the hospital with diagnosis of acute on chronic systolic heart failure, patient was treated with IV Lasix with good response. Patient at the time of discharge has clear lungs and does not need any oxygen symptomatically is back to near baseline. Strongly reinforced need for alcohol cessation, and the need for compliance with medication as well as a low-salt diet. Patient has been educated to weigh himself daily which he says he does, I have advised him to double up on the dose of Lasix if he notes weight gain of 3 pounds over 2 days. I have not made any changes to his chronic home medication list Discharge diagnosis: CHF exacerbation - Time Spent with Patient Total time spent providing and/or coordinating discharge services: Less than 30 minutes Medical - DS: Exam - Constitutional Vitals: Vital Signs Temp Pulse Resp BP Pulse Ox 10/23/18 08:00 97.3 F 19 109/59 95 10/23/18 04:00 97.8 F 86 18 111/65 95 10/23/18 00:00 98.1 F 18 107/68 94 10/22/18 20:00 97.5 F 98 H 18 98/60 95 10/22/18 16:00 98.0 F 20 94/59 95 Intake and Output 10/22/18 10/23/18 10/23/18 21:59 05:59 13:59 Intake Total 400 Output Total 225 950 Balance 175 -950 Intake: Oral 400 Output: Void Amount 225 950 Other: Meal Dinner Percent of Meal Consumed 100% Feeding Ability Independent # Voids 1 Weight 182 lb Additional comments: Constitutional; Afebrile, cooperative, alert, not in distress. Neck- Midline trachea, supple Respiratory system: Air Entry equal on both sides, No crackles or wheezing, no rhonchi. CVS- Rate rhythm regular, S1,S2 heard, no gallop, no rub. Abdomen- Soft nontender abdomen, no organomegaly, no tenderness, no guarding or rigidity, [employer]- AOOx3, moving all extremities, no gross focal deficit noted. Medical - DS: Data Labs on day of discharge: Labs from last 24 hours 10/23/18 10/23/18 03:13 03:13 WBC 7.8 RBC 4.06 L Hgb 12.8 L Hct 39.4 L MCV 97.0 MCH 31.5 MCHC 32.5 RDW 15.2 H Plt Count 124 L MPV 9.2 Gran % 91.0 H Lymph % (Auto) 2.5 L Canadian % (Auto) 6.5 Eos % (Auto) 0 Baso % (Auto) 0 Gran # 7.1 Lymph # (Auto) 0.2 L Canadian # (Auto) 0.5 Eos # (Auto) 0 Baso # (Auto) 0 Sodium 137 Potassium 3.5 Chloride 97 Carbon Dioxide 30 Anion Gap 10.0 BUN 28 H Creatinine 0.9 GFR Calculation 91 Glucose 128 H Uric Acid 7.4 Calcium 9.2 Phosphorus 2.9 Magnesium 2.0 Total Bilirubin 1.4 H Direct Bilirubin 0.6 H GGT 164 H AST 36 ALT 17 Alkaline Phosphatase 140 H Lactate Dehydrogenase 163 Total Protein 6.5 Albumin 3.7 Globulin 2.8 Albumin/Globulin Ratio 1.3 Triglycerides 56 Preliminary micro results at discharge 10/21/18 10:50 Blood Culture - Preliminary Blood 10/21/18 10:43 Blood Culture - Preliminary Blood Medical - DS: A/P - Patient/Caregiver Discharge Instructions Activity: increase activity as tolerated Diet: Low Sodium (2gm), Cardiac Additional Instructions: Please avoid Alcohol consumption. It is very important that you follow a low salt diet Weigh your self daily, every morning if possible in just your undergarments and after you have used the bathroom. If you have noticed that you weight has increased over 3 pounds over 2 days, then double up on the dose of lasix (take an extra dose in afternoon), till your weight comes back to normal. Follow up with PCP in 1 week Your medication list has doxycyline listed, please verify this medication with your PCP Go to the ER if worsening symptoms, chest pain, shortness of breath or any other acute concern. - Follow up Plan Follow up with: Marisol Rowan MD [Primary Care Provider] - Disposition: Home, Self-Care Prognosis: Undetermined Rehab Potential: Fair I certify that the patient requires SNF services: No Overall status at discharge: patient is progressing back to baseline Medical - DS: Qual - VTE Deep Vein Thrombosis/Pulmonary Embolism Present on Admission: No
== END 2018-10-23 12:25 | disposition home or self-care (01) | DRG 292 ==
LOC: ED 07:01 → ICU 12:59
PROVIDERS: ADMIT Internal Medicine; ATTEND Internal Medicine

== ENCOUNTER 2019-09-07 09:33 | Inpatient (IN) ==
--- NOTE | 2019-09-07 10:01 | Emergency Department Note ---
General Adult HPI - General Chief complaint: Abdominal Pain Stated complaint: abdominal pain Time Seen by Provider: 09/07/19 09:38 Source: patient Mode of arrival: wheelchair Limitations: no limitations - History of Present Illness HPI Narrative: 63-year-old male patient presents to the emergency department with chief complaint of generalized malaise, ongoing shortness of breath, abdominal pain, and persistent dark tarry stools times several weeks. Patient was evaluated last month and referred up to [facility] for suspected GI bleed . He and his significant other tell me that no source of bleeding could be found. They have made several adjustments to his medications including discontinuing his anticoagulants, decreasing the dose of his antihypertensives, and changing around his diuretics. Patient is very frail with considerable history of acute on chronic renal failure. CHF with ejection fraction calculated to be roughly 15-19%. He admits to considerable chills. They deny fevers at home. He admits to baseline shortness of breath that is worsened over the last several weeks. He denies retrosternal chest pain or palpitations. He admits to bilateral lower extremity edema which is been new since his visit at [facility]. He admits to ongoing abdominal pain, early satiety, and diarrhea. He denies nausea vomiting. He denies dysuria or hematuria. He admits to a fall at home last week and striking his head. He denies loss of conscious. He admits to generalized weakness but no focal weakness. A review of his active problem list shows the following: Cardiorenal syndrome with renal failure, chronic combined systolic and diastolic CHF with LVEF of 15% with AICD implant, portal hypertensive gastropathy, chronic alcoholic liver disease, peripheral vascular disease, alcohol abuse, dilated cardiomyopathy, acute posthemorrhagic anemia, skin sores, gastric varices, coagulopathy, acute kidney injury, weakness, upper GI bleeds, hypotension, atrial fibrillation, hyperlipidemia, history of DE, anaphylaxis. - Related Data Home Medications Medication Instructions Recorded Confirmed Budesonide/Formoterol Fumarate 2 puff IH BID 10/21/18 09/04/19 [Symbicort 160-4.5 Mcg Inhaler] Doxycycline Hyclate [Vibramycin] 100 mg PO DAILY 10/21/18 09/04/19 Magnesium Oxide 400 mg PO DAILY 10/21/18 09/04/19 Simvastatin [Zocor] 20 mg PO HS 10/21/18 09/04/19 zolpidem 10 mg tablet 10 mg PO QHS PRN 08/09/19 09/04/19 furosemide 80 mg tablet 40 mg PO BID tab 08/15/19 09/04/19 omeprazole 40 mg capsule,delayed 40 mg PO QDAY 08/15/19 09/04/19 release Previous Rx's Medication Instructions Recorded captopril 12.5 mg tablet 6.25 mg PO Q8H #180 tab 08/15/19 iron 150 mg-vit C 60 mg-folate 1 1 tab PO QDAY #90 tab 08/15/19 [id number] tablet spironolactone 25 mg tablet 12.5 mg PO QDAY #30 tab 08/15/19 carvedilol 6.25 mg tablet 6.25 mg PO BID #60 tab 08/16/19 nut.tx.imp.renal fxn,lac-reduc 1 each PO .tid ac #24 each 08/29/19 0.04 gram-1.8 kcal/mL oral liquid Allergies Allergy/AdvReac Type Severity Reaction Status Date / Time amiodarone Allergy Intermediate Rash Verified 09/07/19 09:37 Review of Systems All systems ED: reviewed and negative except as stated. Past Medical History - Past Medical History Medical history: Reports: atrial fibrillation (has been cardioverted in the past.), CHF, chronic anticoagulation (XARELTO), COPD (chronic bronchitis), CAD (coronary artery disease) (has had a defibrillator placed.), hyperlipidemia, hypertension, myocardial infarction (With cardiomyopathy), other (anaphylactic reaction (2014)). Denies: cancer, CVA, DVT, DM, hypothyroidism, pneumonia, pulmonary embolus, TIA Psychiatric history: Denies: anxiety, depression Surgical history ED: Reports: coronary bypass (CABG), herniorrhaphy, pacemaker/AICD - Social History smoking status: Former smoker Alcohol use: Reports: Heavy (6-7 beer/day 10.21.2018) Drug use: Reports: none. Denies: marijuana Physical Exam Limitations: no limitations General appearance: alert, cachectic, other (Frail, cachectic, and chronically ill appearing 63-year-old male laying supine on the emergency room gurney in no acute respiratory distress.) Head: atraumatic, normocephalic Eye: Present: normal appearance, PERRL, EOMI. Absent: scleral icterus, conjunctival injection ENT: Present: normal oropharynx, mucous membranes moist Neck: Present: trachea midline. Absent: lymphadenopathy, thyromegaly Chest: Present: symmetric chest wall rise Respiratory: Present: decreased breath sounds. Absent: respiratory distress, rales/crackles (To the mid chest and bases.), wheezes, accessory muscle use Cardiovascular: Present: regular rate, irregular rhythm. Absent: systolic murmur, diastolic murmur Abdominal: Present: soft, hyperactive bowel sounds, scar (Very large, well- healed midline surgical scar to the abdomen.). Absent: distention, tenderness, guarding, rebound, rigidity, organomegaly, mass Extremities: Present: full ROM, normal capillary refill, pedal edema (Considerable +3+4 pitting edema extending up to the midcalf.), pretibial edema. Absent: calf tenderness Back: Absent: tenderness Neurological: Present: alert, oriented X3 Psychiatric: Present: normal affect, depressed Skin: Present: warm, dry Course Course Narrative: Patient was brought into the emergency department and a history and physical exam was performed. Saline lock was established and laboratory studies were drawn. Portable chest x-ray was ordered and reviewed showing cardiomegaly and congestive heart failure since then changed from 08/03/2019. Patient has been hypotensive with systolic blood pressure in the 90s. Normal saline was initially started but discontinued due to the patient's heart failure. Due to his hypotension, but need for diuresis, I consulted with my collaborating physician (Dr. Jiang) I discussed the case with him. At this time Dr. Jiang recommended consultation with hospitalist for likely admission. Review of his laboratory studies show the following: CBC RBC 3.57, hemoglobin 9.1, hematocrit 29.5, MCH 25.5, MCHC 30.8, RDW 16.2, MPV 11.7. CMP chloride 94, creatinine 1.6, glucose 111, total bilirubin 1.2, all others normal limits. Portable chest x- ray showing cardiomegaly and CHF that is essentially unchanged from 08/03/2019. Twelve-lead EKG shows low voltage atrial fibrillation at a rate of 99 bpm with several PVCs. At this time patient is requested more conservative/palliative treatment to help with his symptoms. He does not want considerably aggressive cardiovascular follow-up. I discussed this case once again my collaborating physician. Who then reached out to the hospitalist about possible admission. At this time the hospitalist (Dr. Ferro) came down to the emergency department and spoke to the patient. The hospitalist has consented to admit the patient to our facility with the understanding that the patient is going to be treated palliatively. Although the patient is frail and somewhat hypotensive he is remained stable throughout his entire time in the emergency department. As mentioned, he is going to be admitted to the hospital under the care of the hospitalist (Dr. Ferro). All further treatment decisions and modalities will be carried out by Dr. Ferro. Vital Signs Pulse Rate 85 09/07/19 09:33 Respiratory Rate 16 09/07/19 09:33 Pulse Oximetry (%) 100 09/07/19 09:33 Temperature 97.3 F 09/07/19 09:40 Pulse Rate 100 H 09/07/19 12:36 Respiratory Rate 17 09/07/19 12:36 Blood Pressure 89/74 09/07/19 12:36 Pulse Oximetry (%) 95 09/07/19 12:36 Medical Decision Making - Lab Data Lab results reviewed: Yes I reviewed the patient's lab results. Result diagrams: 09/07/19 09:45 09/07/19 09:45 Lab Results 09/07/19 09/07/19 09/07/19 Range/Units 09:45 09:45 10:08 WBC 4.6 (4.50-11.00) K/mcL RBC 3.57 L (4.63-6.08) M/mcL Hgb 9.1 L (13.7-17.5) g/dL Hct 29.5 L (40.1-51.0) % POC Hct 30.0 L (41.0-55.0) % MCV 82.6 (80.0-100.0) fL MCH 25.5 L (26.0-34.0) pg MCHC 30.8 L (31.0-36.0) g/dL RDW 16.2 H (11.5-14.5) % Plt Count 166 (140-440) K/mcL MPV 11.7 H (7.4-10.4) fL Gran % 70.6 (38.0-78.0) % Lymph % (Auto) 12.1 L (15.5-49.0) % [place] % (Auto) 9.2 (1.0-12.0) % Eos % (Auto) 7.0 (0.0-7.0) % Baso % (Auto) 1.1 (0.0-2.0) % Gran # 3.22 (1.80-8.00) K/mcL Lymph # (Auto) 0.55 L (1.50-4.80) K/mcL [place] # (Auto) 0.42 (0.10-0.90) K/mcL Eos # (Auto) 0.32 (0.00-0.70) K/mcL Baso # (Auto) 0.05 (0.00-0.30) K/mcL POC Sodium 135 (133-145) mmol/L Sodium 136 (133-145) mmol/L POC Potassium 3.4 (3.3-5.1) mmol/L Potassium 3.4 (3.3-5.1) mmol/L POC Chloride 95 L (96-108) mmol/L Chloride 94 L (96-108) mmol/L Carbon Dioxide 28 (22-30) mmol/L POC Total CO2 27 (22-30) mmol/L Anion Gap 14.0 (8-16) POC BUN 23 (8-23) mg/dl BUN 23 (8-23) mg/dl Creatinine 1.6 H (0.7-1.2) mg/dl POC Creatinine 1.8 H (0.7-1.2) mg/dl GFR Calculation 45 Glucose 111 H (70-105) mg/dL POC Glucose 115 H (70-105) mg/dL Calcium 9.4 (8.6-10.4) mg/dl POC WB Ioniz Calcium 1.06 L (1.16-1.32) mmol/L Total Bilirubin 1.2 H (0.0-1.0) mg/dL AST 25 (0-37) U/l ALT 10 (0-40) U/l Alkaline Phosphatase 107 (39-117) U/L Total Protein 6.7 (5.9-8.4) gm/dL Albumin 3.7 (3.2-5.2) gm/dL Globulin 3.0 (2.2-3.7) gm/dL Albumin/Globulin Ratio 1.2 (1.0-2.3) - Radiology Data Radiology results reviewed: Yes I reviewed the patient's radiology results. Ordering Physician: Tramaine Silva PA-C Date of Service: 09/07/19 Procedure(s): XR chest 1V portable Accession Number(s): [id number] CLINICAL INFORMATION:History of congestive heart failure. Dyspnea TECHNIQUE: AP portable semiupright chest x-ray COMPARISON: Chest x-rays dated 08/03/2019, 06/21/2019, 10/31/2018 FINDINGS:Previous median sternotomy. There is a power pack overlying the left lateral thorax with a single lead in unchanged position There is cardiomegaly, unchanged. Pulmonary vascularity remains distended. There is interstitial pulmonary edema. Findings continue to be consistent with congestive heart failure. When allowances are made for differences in inspiration there is been no definite interval change. No focal pulmonary parenchyma consolidation IMPRESSION: 1. Cardiomegaly 2. Congestive heart failure, essentially unchanged since 08/03/2019 Interpreted and Authenticated by: Miguel Dewey 09/07/19 Disposition Pt seen by SENIOR DIRECTOR OF STRATEGY/PA only: Yes Clinical Impression: Cardiorenal syndrome with renal failure, Chronic combined systolic and diastolic CHF, NYHA class 4, Atrial fibrillation, chronic, Failure to thrive in adult Disposition: Xfer As Inpt ([facility]) Condition: Serious Additional Instructions: Patient is being admitted to the hospital under the care of the hospitalist (Dr. Ferro). All further treatment decisions and modalities to be carried out by the hospitalist at this time. Referrals: Esdras Khanna MD, FAAFP [Physician] -
--- NOTE | 2019-09-07 10:14 | XRay Report ---
CLINICAL INFORMATION:History of congestive heart failure. Dyspnea TECHNIQUE: AP portable semiupright chest x-ray COMPARISON: Chest x-rays dated 08/03/2019, 06/21/2019, 10/31/2018 FINDINGS:Previous median sternotomy. There is a power pack overlying the left lateral thorax with a single lead in unchanged position There is cardiomegaly, unchanged. Pulmonary vascularity remains distended. There is interstitial pulmonary edema. Findings continue to be consistent with congestive heart failure. When allowances are made for differences in inspiration there is been no definite interval change. No focal pulmonary parenchyma consolidation IMPRESSION: 1. Cardiomegaly 2. Congestive heart failure, essentially unchanged since 08/03/2019 Interpreted and Authenticated by: Miguel Dewey 09/07/19
[2019-09-07 10:16] LABS: POC Blood Urea Nitrogen 23 mg/dl (8-23); POC CO2 27 mmol/L (22-30); POC Calcium, Ionized 1.06 mmol/L (1.16-1.32); POC Chloride 95 mmol/L (96-108); POC Creatinine 1.8 mg/dl (0.7-1.2); POC Glucose, Random 115 mg/dL (70-105); POC Potassium 3.4 mmol/L (3.3-5.1); POC Sodium 135 mmol/L (133-145)
[2019-09-07 10:18] LABS: Basophils # (Auto) 0.05 K/mcL (0.00-0.30); Basophils % (Auto) 1.1 % (0.0-2.0); Eosinophils # (Auto) 0.32 K/mcL (0.00-0.70); Granulocytes % (Auto) 70.6 % (38.0-78.0); Hematocrit 29.5 % (40.1-51.0); Hemoglobin 9.1 g/dL (13.7-17.5); Lymphocytes # (Auto) 0.55 K/mcL (1.50-4.80); Lymphocytes % (Auto) 12.1 % (15.5-49.0); Mean Cell Volume 82.6 fL (80.0-100.0); Mean Corpuscular HGB Conc 30.8 g/dL (31.0-36.0); Mean Platelet Volume 11.7 fL (7.4-10.4); Monocytes # (Auto) 0.42 K/mcL (0.10-0.90); Monocytes % (Auto) 9.2 % (1.0-12.0); Platelet Count 166 K/mcL (140-440); RBC 3.57 M/mcL (4.63-6.08); Red Cell Distribution Width 16.2 % (11.5-14.5); WBC 4.6 K/mcL (4.50-11.00)
[2019-09-07] MEDS ORDERED: 0.9 % SODIUM CHLORIDE 250 ML IV ONE (10:22)
[2019-09-07 10:34] LABS: ALT/SGPT 10 U/l (0-40); AST/SGOT 25 U/l (0-37); Albumin 3.7 gm/dL (3.2-5.2); Albumin/Globulin Ratio 1.2 (1.0-2.3); Alkaline Phosphatase 107 U/L (39-117); Bilirubin,Total 1.2 mg/dL (0.0-1.0); Blood Urea Nitrogen 23 mg/dl (8-23); Calcium 9.4 mg/dl (8.6-10.4); Carbon Dioxide 28 mmol/L (22-30); Chloride 94 mmol/L (96-108); Glomerular Filtration Rate 45; Glucose 111 mg/dL (70-105)
--- NOTE | 2019-09-07 12:55 | Internal Med History&Physical ---
Medical - H&P: HPI Patient information: Note initiated : 09/07/19 at 12:55 pm Service Date, if different from initiated Date: [] Patient: Irvin Cannon a 63 y/o M admitted on for Abdominal Pain . Chief Complaint: [] Chief complaint: Shortness of breath, weakness and diarrhea History of present illness: Mr. Cannon is a 63 year old M with history of ischemic cardiomyopathy with NYHA class IV systolic heart failure status post defibrillator/CABG 1993. He presents to the ER with 2 weeks onset of progressive weakness diarrhea loss of appetite discomfort, increasing weight gain and lower extremity swelling. Patient has been feeling short of breath unable to get out of bed or function. Symptoms are progressed from dyspnea at maximal exertion to dyspnea at rest. He does feel orthopneic. With above symptoms patient is accompanied with his to the ER. Per history patient denies recent sick contact/changes medication or NSAID intake. He denies high salt diet. He follows up with cardiology Dr. Silvano CISSE at [place] and recently established with heart clinic [place] but is sche duled for appointment in November. Patient has a complicated last few months with recurrent GI bleed back in May and subsequently a months earlier where he was shipped to [place] but work-up was unremarkable. Anticoagulants were discontinued during that visit. Ever since patient has noted gradual failure to thrive loss of appetite and generalized deconditioning. Per cardiology has recommended palliative care for end-stage heart failure. Patient however would like to continue agg ressive treatment to evaluate symptoms short of mechanical ventilation and CPR. He also follows up with nephrology for chronic kidney disease Initial work-up in the ER was consistent with hypotension/CHF on chest imaging. However Lasix was not administered in light of hypotension. Hospitalist se juárez was consulted. At time evaluation patient is accompanied with his . He refuses to transfer to tertiary center despite end-stage heart failure requiring specialized cardiology service. He wishes to stay at [facility] for a trial of diuretics and pressors. He clearly indicated that if he fails to improve he would choose comfort care/palliation for end-of-life transition. He clearly understand that we are unable to provide in-depth cardiology work-up or advanced treatment of heart failure as he lacked the capacity and cardiology services. Patient and clearly indicated they understand the risk that may include due to worsening heart failure and would like to be admitted at [facility] for treatment of heart failure to the extent possible. Patient denies headache photophobia, nausea, vomiting, chest pain, fever chills. Review of systems A 10 point review system was performed and is negative except was cussed above Medical - H&P: H Medical history: Chronic anticoagulation (Acute) Atrial fibrillation, chronic (Acute) Hypertension, essential (Acute) Hyperlipidemia (Acute) History of myocardial infarction (Acute) History of CHF (congestive heart failure) (Acute) Acute hepatitis (Acute) Liver function failure (Acute) Heart failure, systolic, with acute decompensation (Acute) Abdominal pain (Acute) Muscle strain (Acute) Allergic reaction (Acute) Allergic reaction (Acute) Anaphylaxis (Acute) Surgical history: CABG Defibrillator Hernia repair Family history: Mother heart disease Father heart disease Social history: Patient quit smoking 5 years ago Drinks at least 6-7 beers per day Denies drug use Lives at home with his Medical - H&P: Meds Home Medications Medication Instructions Recorded Confirmed Type Budesonide/Formoterol Fumarate 2 puff IH BID 10/21/18 09/07/19 History [Symbicort 160-4.5 Mcg Inhaler] Doxycycline Hyclate [Vibramycin] 100 mg PO DAILY 10/21/18 09/07/19 History Magnesium Oxide 400 mg PO DAILY 10/21/18 09/07/19 History Simvastatin [Zocor] 20 mg PO HS 10/21/18 09/07/19 History zolpidem 10 mg tablet 10 mg PO QHS PRN 08/09/19 09/07/19 History furosemide 80 mg tablet 40 mg PO BID tab 08/15/19 09/07/19 History omeprazole 40 mg capsule,delayed 40 mg PO QDAY 08/15/19 09/07/19 History release carvedilol 6.25 mg tablet 6.25 mg PO BID #60 tab 08/16/19 09/07/19 Rx nut.tx.imp.renal fxn,lac-reduc 1 each PO .tid ac #24 each 08/29/19 09/04/19 Rx 0.04 gram-1.8 kcal/mL oral liquid Captopril [Capoten] 12.5 mg PO BID 09/07/19 09/07/19 History Poly-Iron 150 Forte Capsule 150 mg PO QDAY 09/07/19 09/07/19 History Spironolactone 12.5 mg PO BID 09/07/19 09/07/19 History Allergies Allergy/AdvReac Type Severity Reaction Status Date / Time amiodarone Allergy Intermediate Rash Verified 09/07/19 09:37 Medical - H&P: Exam - Constitutional Vitals: Temp Pulse Resp BP Pulse Ox 97.3 F 100 H 17 89/74 95 09/07/19 09:40 09/07/19 12:36 09/07/19 12:36 09/07/19 12:36 09/07/19 12:36 General appearance: moderate distress Exam: Head normocephalic Fatigued and lethargic Oral cavity dry No ear nose discharge Neck no lymphadenopathy however JVD noted S1-S2 irregular, telemetry bundle branch Diminished breath sounds bases with late inspiratory crackles Abdomen soft nontender Lower extremity pitting edema from mid thigh to the ankle Skin no suspicious lesion Psych fatigue lethargic but cooperative Neuro nonfocal Medical - H&P: Reslt - Labs CBC & Chem 7: 09/09/19 05:06 09/09/19 05:06 Labs: Short CBC 09/07/19 Range/Units 09:45 WBC 4.6 (4.50-11.00) K/mcL Hgb 9.1 L (13.7-17.5) g/dL Hct 29.5 L (40.1-51.0) % Plt Count 166 (140-440) K/mcL BMP 09/07/19 09:45 Sodium 136 Potassium 3.4 Chloride 94 L Carbon Dioxide 28 BUN 23 Creatinine 1.6 H Glucose 111 H Calcium 9.4 Liver Function 09/07/19 Range/Units 09:45 Total Bilirubin 1.2 H (0.0-1.0) mg/dL AST 25 (0-37) U/l ALT 10 (0-40) U/l Alkaline Phosphatase 107 (39-117) U/L Albumin 3.7 (3.2-5.2) gm/dL Medical - H&P: A/P (1) Chronic combined systolic and diastolic CHF, NYHA class 4 Problem details: rLVEF 15% with AICD Grade III/III D/Dysfx End stage cardiomyopathy with low BP Current visit: Yes Status: Chronic * NYHA class IV systolic heart failure with EF 15%. Status post defibrillator placement. With acute decompensation evident on chest imaging with worsening dyspnea/orthopnea. initiate diuresis. Restart home medication including beta-paola/spironolactone. RAFFI inhibitor held per nephrology * Cardiorenal syndrome -nephrology consulted and recommends holding RAFFI inhibitor. * Diarrhea-check stool studies/C. difficile. History of exposure to chronic doxycycline * History of CAD continue beta-paola/spironolactone/simvastatin/aspirin. Anticoagulation (held by cardiology after recent GI bleed) * History of COPD continue Symbicort * GERD continue PPI * Degenerative joint disease Plan * Inpatient ICU admission * Diuretics/vasopressors * Nephrology consult * High risk mortality in light of advanced heart failure * Initiate PT OT nutrition support
[2019-09-07] MEDS ORDERED: POLYETHYLENE GLYCOL 3350 17 GM PACKET PO PRN (14:35)
[2019-09-07] MEDS ORDERED: MELATONIN 3 MG TABLET PO PRN (14:35)
[2019-09-07] MEDS ORDERED: MAGNESIUM SULFATE 2 GM/50 ML BAG IV PRN (14:35)
[2019-09-07] MEDS ORDERED: POTASSIUM CHLORIDE 20 MEQ PACKET PO PRN (14:35)
[2019-09-07] MEDS ORDERED: BISACODYL 10 MG SUPP.RECT PR PRN (14:35)
[2019-09-07] MEDS ORDERED: ONDANSETRON 4 MG ODT TABLET SL PRN (14:35)
[2019-09-07] MEDS ORDERED: ACETAMINOPHEN 325 MG TABLET PO PRN (14:35)
[2019-09-07] MEDS: FUROSEMIDE 40 MG/4 ML VIAL IV SCH (16:08)
[2019-09-07] MEDS: 0.9 % SODIUM CHLORIDE 10 ML SYRINGE IV SCH ×2 (16:08→20:35)
[2019-09-07] MEDS: DOCUSATE SODIUM 100 MG CAPSULE PO SCH (19:57)
[2019-09-07] MEDS: SENNOSIDES/DOCUSATE SODIUM 1 TAB TABLET PO SCH (19:57)
[2019-09-07] MEDS: SIMVASTATIN 20 MG TABLET PO SCH (20:36)
[2019-09-07] MEDS: CYANOCOBALAMIN (VITAMIN B-12) 500 MCG TABLET PO SCH (20:36)
[2019-09-07] MEDS: ZOLPIDEM 5 MG TABLET PO PRN (20:36)
[2019-09-07] MEDS: HEPARIN 5,000 UNIT/ML VIAL SQ SCH (20:36)
[2019-09-07] MEDS: Budesonide/Formoterol Fumarate [Symbicort] 160-4.5 mcg Inhaler INH SCH (21:14)
[2019-09-08] MEDS ORDERED: IPRATROPIUM/ALBUTEROL 3 ML AMPUL.NEB NEB ONE (04:47)
[2019-09-08] MEDS: NOREPINEPHRINE BITARTRATE 16 MG in 0.9 % SODIUM CHLORIDE 234 ML IV SCH ×2 (04:49→14:57)
[2019-09-08] MEDS: 0.9 % SODIUM CHLORIDE 250 ML IV SCH ×2 (04:50→17:47)
[2019-09-08] MEDS: 0.9 % SODIUM CHLORIDE 10 ML SYRINGE IV SCH ×3 (04:50→22:55)
[2019-09-08 06:27] LABS: Hematocrit 32.5 % (40.1-51.0); Hemoglobin 9.4 g/dL (13.7-17.5); Mean Cell Volume 88.6 fL (80.0-100.0); Mean Corpuscular HGB Conc 28.9 g/dL (31.0-36.0); Mean Platelet Volume 12.3 fL (7.4-10.4); Platelet Count 194 K/mcL (140-440); RBC 3.67 M/mcL (4.63-6.08); Red Cell Distribution Width 16.8 % (11.5-14.5); WBC 5.3 K/mcL (4.50-11.00)
[2019-09-08 06:58] LABS: ALT/SGPT 9 U/l (0-40); AST/SGOT 26 U/l (0-37); Albumin 3.3 gm/dL (3.2-5.2); Albumin/Globulin Ratio 0.9 (1.0-2.3); Alkaline Phosphatase 106 U/L (39-117); Bilirubin,Direct 0.5 mg/dL (0.0-0.3); Bilirubin,Total 1.5 mg/dL (0.0-1.0); Blood Urea Nitrogen 23 mg/dl (8-23); Calcium 9.2 mg/dl (8.6-10.4); Carbon Dioxide 18 mmol/L (22-30); Chloride 96 mmol/L (96-108); Globulin 3.7 gm/dL (2.2-3.7); Glomerular Filtration Rate 49; Glucose 90 mg/dL (70-105); Lactate Dehydrogenase 279 U/L (94-250); Phosphorous 3.9 mg/dL (2.7-4.5); Triglycerides 55 mg/dl (<150); Uric Acid 12.8 mg/dL (2.5-8.0)
[2019-09-08] MEDS: OMEPRAZOLE 20 MG CAPSULE PO SCH (07:19)
[2019-09-08 07:25] LABS: Anisocytosis 1+ (NONE SEEN); Band Neutrophils % 2 % (0-10); Eosinophils % (Manual) 1 % (0-7); Hypochromasia 1+ (NONE SEEN); Lymphocytes % 21 % (15-49); Monocytes % (Manual) 2 % (1-12); Nucleated Red Blood Cells 1 % (0-0); Ovalocytes FEW (NONE SEEN); Platelet Estimate NORMAL (NORMAL); RBC Morphology ABNORM (NORMAL); Segmented Neutrophils % 74 % (38-78)
--- NOTE | 2019-09-08 07:36 | Emergency Department Note ---
ED Note Addendum Note Addendum: I interviewed and examined this patient and discussed his case multiple times with the midlevel provider and the hospitalist. This patient has end-stage cardiomyopathy and congestive heart failure and does not want to be on a transplant list. He was going to require pressors in order to diurese him. Dr. Ferro the hospitalist was willing to do an admission and he was admitted to the hospital.
[2019-09-08] MEDS: FUROSEMIDE 40 MG/4 ML VIAL IV SCH ×2 (08:39→17:48)
[2019-09-08] MEDS: MULTIVIT,THER IRON,CA,FA & MIN 1 TABLET PO SCH (08:40)
[2019-09-08] MEDS: DOXYCYCLINE HYCLATE 100 MG TABLET.ORL PO SCH (08:40)
[2019-09-08] MEDS: CARVEDILOL 6.25 MG TABLET PO SCH ×2 (08:40→17:46)
[2019-09-08] MEDS: HEPARIN 5,000 UNIT/ML VIAL SQ SCH ×2 (08:40→22:54)
[2019-09-08] MEDS: FOLIC ACID 1 MG TABLET PO SCH (08:40)
[2019-09-08] MEDS: MAGNESIUM OXIDE 400 MG TABLET PO SCH (08:40)
[2019-09-08] MEDS: THIAMINE 100 MG TABLET PO SCH (08:40)
[2019-09-08] MEDS: DOCUSATE SODIUM 100 MG CAPSULE PO SCH ×2 (08:40→22:11)
[2019-09-08] MEDS: CYANOCOBALAMIN (VITAMIN B-12) 500 MCG TABLET PO SCH ×2 (08:40→22:55)
[2019-09-08] MEDS: Budesonide/Formoterol Fumarate [Symbicort] 160-4.5 mcg Inhaler INH SCH ×2 (08:41→23:02)
[2019-09-08] MEDS ORDERED: IRON POLYSACCHARIDE COMPLEX 150 MG CAPSULE PO SCH (09:00)
[2019-09-08] MEDS: IPRATROPIUM/ALBUTEROL 3 ML AMPUL.NEB NEB PRN (13:34)
[2019-09-08] MEDS: IRON POLYSACCHARIDE COMPLEX 150 MG CAPSULE PO SCH (17:46)
[2019-09-08] MEDS: ZOLPIDEM 5 MG TABLET PO PRN ×2 (22:10→22:54)
[2019-09-08] MEDS: SENNOSIDES/DOCUSATE SODIUM 1 TAB TABLET PO SCH (22:55)
[2019-09-08] MEDS: SIMVASTATIN 20 MG TABLET PO SCH (22:55)
[2019-09-09] MEDS: IPRATROPIUM/ALBUTEROL 3 ML AMPUL.NEB NEB PRN ×2 (01:17→20:25)
[2019-09-09] MEDS ORDERED: LORazepam 2 MG/ML VIAL IV PRN (02:29)
[2019-09-09] MEDS ORDERED: LORazepam 2 MG/ML VIAL ONE (02:36)
[2019-09-09] MEDS: 0.9 % SODIUM CHLORIDE 250 ML IV SCH ×2 (04:17→18:00)
[2019-09-09] MEDS: CYANOCOBALAMIN (VITAMIN B-12) 500 MCG TABLET PO SCH ×3 (04:18→20:51)
[2019-09-09] MEDS: 0.9 % SODIUM CHLORIDE 10 ML SYRINGE IV SCH ×3 (05:52→20:51)
[2019-09-09 06:25] LABS: Hematocrit 30.6 % (40.1-51.0); Hemoglobin 9.4 g/dL (13.7-17.5); Mean Cell Volume 81.8 fL (80.0-100.0); Mean Corpuscular HGB Conc 30.7 g/dL (31.0-36.0); Mean Platelet Volume 11.6 fL (7.4-10.4); Platelet Count 194 K/mcL (140-440); RBC 3.74 M/mcL (4.63-6.08); Red Cell Distribution Width 16.5 % (11.5-14.5); WBC 5.8 K/mcL (4.50-11.00)
[2019-09-09 06:50] LABS: ALT/SGPT 10 U/l (0-40); AST/SGOT 25 U/l (0-37); Albumin 3.4 gm/dL (3.2-5.2); Albumin/Globulin Ratio 1.1 (1.0-2.3); Alkaline Phosphatase 106 U/L (39-117); Bilirubin,Total 1.6 mg/dL (0.0-1.0); Blood Urea Nitrogen 25 mg/dl (8-23); Calcium 9.2 mg/dl (8.6-10.4); Carbon Dioxide 21 mmol/L (22-30); Chloride 96 mmol/L (96-108); Globulin 3.2 gm/dL (2.2-3.7); Glomerular Filtration Rate 45; Glucose 108 mg/dL (70-105); Lactate Dehydrogenase 260 U/L (94-250); Phosphorous 3.9 mg/dL (2.7-4.5); Triglycerides 53 mg/dl (<150); Uric Acid 13.3 mg/dL (2.5-8.0)
[2019-09-09 06:55] LABS: Anisocytosis 1+ (NONE SEEN); Hypochromasia FEW (NONE SEEN); Lymphocytes % 4 % (15-49); Monocytes % (Manual) 7 % (1-12); Ovalocytes FEW (NONE SEEN); Platelet Estimate NORMAL (NORMAL); Polychromasia FEW (NONE SEEN); RBC Morphology ABNORM (NORMAL); Segmented Neutrophils % 89 % (38-78)
[2019-09-09 06:56] LABS: Bilirubin,Direct 0.7 mg/dL (0.0-0.3)
[2019-09-09] MEDS: CARVEDILOL 6.25 MG TABLET PO SCH ×2 (07:59→18:00)
[2019-09-09] MEDS: OMEPRAZOLE 20 MG CAPSULE PO SCH (07:59)
--- NOTE | 2019-09-09 09:41 | Internal Med Progress Note ---
Medical - PN: Subj Patient information: Note initiated : 09/08/19 at 11:38 am Service Date, if different from initiated Date: [] Patient: Irvin Cannon a 63 y/o M admitted on 09/07/19 for Abdominal Pain . Chief Complaint: [] Interval history: Mr. Cannon is a 63 year old M with history of ischemic cardiomyopathy with NYHA class IV systolic heart failure status post defibrillator/CABG 1993. He presents to the ER with 2 weeks onset of progressive weakness diarrhea loss of appetite discomfort, increasing weight gain and lower extremity swelling. Patient has been feeling short of breath unable to get out of bed or function. Symptoms are progressed from dyspnea at maximal exertion to dyspnea at rest. He does feel orthopneic. With above symptoms patient is accompanied with his to the ER. Per history patient denies recent sick contact/changes medication or NSAID intake. He denies high salt diet. He follows up with cardiology Dr. Silvano CISSE at [place] and recently established with heart clinic [facility] but is scheduled for appointment in November. Patient has a complicated last few months with recurrent GI bleed back in May and subsequently a months earlier where he was shipped to [place] but work-up was unremarkable. Anticoagulants were discontinued during that visit. Ever since patient has noted gradual failure to thrive loss of appetite and generalized deconditioning. Per cardiology has recommended palliative care for end-stage heart failure. Patient however would like to continue aggressive treatment to evaluate symptoms short of mechanical ventilation and CPR. He also follows up with nephrology for chronic kidney disease Initial work-up in the ER was consistent with hypotension/CHF on chest imaging. However Lasix was not administered in light of hypotension. Hospitalist service was consulted. At time evaluation patient is accompanied with his . He refuses to transfer to tertiary center despite end-stage heart failure requiring specialized cardiology service. He wishes to stay at [facility] for a trial of diuretics and pressors. He clearly indicated that if he fails to improve he would choose comfort care/palliation for end-of-life transition. He clearly understand that we are unable to provide in-depth cardiology work-up or advanced treatment of heart failure as he lacked the capacity and cardiology services. Patient and clearly indicated they understand the risk that may include due to worsening heart failure and would like to be admitted at [facility] for treatment of heart failure to the extent possible. 2/14-patient showed minimal improvement on diuresis. Systolics soft around mid 80s. Case discussed with Dr. Armen Walter on-call for Dr. Silvano Cisse, reviewed prior blood work/records and recommends an outpatient follow-up following discharge for transplant candidacy in light of advanced heart failure and age. His last visit was in April and thereafter he has not followed up with cardiology at [place] but is scheduled to follow at the local clinic in November. Furthermore cardiology recommended if the patient decompensate he can be transferred for further management as inpatient. Information was relayed to pat ient and . No overnight events. No other concerns per nursing staff. - Constitutional Vitals: Vital Signs Temp Pulse Resp BP Pulse Ox 97.7 F 98 H 20 91/76 94 09/09/19 08:00 09/08/19 20:01 09/09/19 08:00 09/09/19 08:00 09/09/19 08:00 Period Temp Pulse Resp BP Sys/Cheema Pulse Ox Last 24 Hr 97.7 F-98.2 F 89-122 12-28 88-108/66-87 87-100 Intake and Output 09/08/19 09/09/19 09/09/19 21:59 05:59 13:59 Intake Total 760 360 Output Total 230 190 15 Balance 530 -190 345 Weight 155 lb Intake & Output: Intake & Output 09/08/19 09/09/19 09/09/19 21:59 05:59 13:59 Intake Total 760 360 Output Total 230 190 15 Balance 530 -190 345 Weight 155 lb Intake: Oral 760 360 Output: Urine Catheter Amount 230 190 15 Other: Urine Appearance Clear Urine Color Dark Nikky Urine Odor Normal Stool Size Small Small Stool Color Brown Brown Stool Consistency Liquid Soft # Bowel Movements 1 General appearance: moderate distress Exam: Short of breath fatigued and withdrawn Flat affect Labored breathing Intermittent tachycardia Anterior chest defibrillator Lymphedema lower extremity Medical - PN: Obj Da - Labs CBC & Chem 7: 09/09/19 05:06 09/09/19 05:06 Labs: Abnormal Lab Results 09/09/19 09/09/19 09/08/19 05:06 05:06 04:58 RBC 3.74 L Hgb 9.4 L Hct 30.6 L POC Hct MCH 25.1 L MCHC 30.7 L RDW 16.5 H MPV 11.6 H Lymph % (Auto) Lymph # (Auto) Seg Neutrophils % 89 H Lymphocytes % 4 L Nucleated RBCs RBC Morphology Abnorm A Polychromasia Few A Hypochromasia Few A Anisocytosis 1+ A Ovalocytes Few A POC Chloride Chloride Carbon Dioxide 21 L 18 L Anion Gap 18.0 H 20.0 H BUN 25 H Creatinine 1.6 H 1.5 H POC Creatinine Glucose 108 H POC Glucose Uric Acid 13.3 H 12.8 H POC WB Ioniz Calcium Total Bilirubin 1.6 H 1.5 H Direct Bilirubin 0.7 H 0.5 H Lactate Dehydrogenase 260 H 279 H Albumin/Globulin Ratio 0.9 L 09/08/19 09/07/19 09/07/19 04:58 10:08 09:45 RBC 3.67 L Hgb 9.4 L Hct 32.5 L POC Hct 30.0 L MCH 25.6 L MCHC 28.9 L RDW 16.8 H MPV 12.3 H Lymph % (Auto) Lymph # (Auto) Seg Neutrophils % Lymphocytes % Nucleated RBCs 1 H RBC Morphology Abnorm A Polychromasia Hypochromasia 1+ A Anisocytosis 1+ A Ovalocytes Few A POC Chloride 95 L Chloride 94 L Carbon Dioxide Anion Gap BUN Creatinine 1.6 H POC Creatinine 1.8 H Glucose 111 H POC Glucose 115 H Uric Acid POC WB Ioniz Calcium 1.06 L Total Bilirubin 1.2 H Direct Bilirubin Lactate Dehydrogenase Albumin/Globulin Ratio 09/07/19 09:45 RBC 3.57 L Hgb 9.1 L Hct 29.5 L POC Hct MCH 25.5 L MCHC 30.8 L RDW 16.2 H MPV 11.7 H Lymph % (Auto) 12.1 L Lymph # (Auto) 0.55 L Seg Neutrophils % Lymphocytes % Nucleated RBCs RBC Morphology Polychromasia Hypochromasia Anisocytosis Ovalocytes POC Chloride Chloride Carbon Dioxide Anion Gap BUN Creatinine POC Creatinine Glucose POC Glucose Uric Acid POC WB Ioniz Calcium Total Bilirubin Direct Bilirubin Lactate Dehydrogenase Albumin/Globulin Ratio Meds: Medications Acetaminophen (Tylenol) 650 mg PO Q4-6HP PRN; Protocol PRN Reason: Per Pain Protocol/Fever > 101 Albuterol/Ipratropium (Duoneb) 3 ml NEB Q4HP PRN PRN Reason: Shortness Of Breath Last Admin: 09/09/19 01:17 Dose: 3 ml Documented by: Bisacodyl (Dulcolax) 10 mg OK Q2-3DAYS PRN PRN Reason: Constipation Carvedilol (Coreg) 6.25 mg PO BIDCC [facility] Last Admin: 09/09/19 07:59 Dose: 6.25 mg Documented by: Cyanocobalamin (Vitamin B-12) 1,000 mcg PO BID [facility] Stop: 09/12/19 09:01 Last Admin: 09/09/19 04:18 Dose: 1,000 mcg Documented by: Docusate Sodium (Colace) 100 mg PO BID [facility] Last Admin: 09/08/19 22:11 Dose: 100 mg Documented by: Doxycycline Hyclate (Doxycycline Hyclate) 100 mg PO DAILY [facility] Last Admin: 09/08/19 08:40 Dose: 100 mg Documented by: Folic Acid (Folic Acid) 1 mg PO DAILY [facility] Last Admin: 09/08/19 08:40 Dose: 1 mg Documented by: Furosemide (Lasix) 40 mg IV BIDD [facility] Last Admin: 09/08/19 17:48 Dose: Not Given Documented by: Heparin Sodium (Porcine) (Heparin) 5,000 unit SQ Q12 [facility] Last Admin: 09/08/19 22:54 Dose: 5,000 unit Documented by: Magnesium Sulfate (Magnesium Sulfate) 2 gm in 50 mls @ 50 mls/hr IV UD PRN PRN Reason: MG = or < 1.7 Norepinephrine Bitartrate 16 (mg/ Sodium Chloride) 250 mls @ 9.375 mls/hr IV Q24H [facility]; Protocol Last Admin: 09/08/19 14:57 Dose: Not Given Documented by: Sodium Chloride (Sodium Chloride 0.9%) 250 mls @ 20 mls/hr IV .[id number] [facility] Last Admin: 09/09/19 04:17 Dose: Not Given Documented by: Iron Carb/Multivit/[place]/Folic Acid (Multivitamin W/Minerals) 1 tab PO DAILY [facility] Last Admin: 09/08/19 08:40 Dose: 1 tab Documented by: Magnesium Oxide (Magnesium Oxide) 400 mg PO DAILY [facility] Last Admin: 09/08/19 08:40 Dose: 400 mg Documented by: Melatonin (Melatonin 3mg Tablet) 3 mg PO HSP PRN PRN Reason: Insomnia Omeprazole (Prilosec) 40 mg PO ACB [facility] Last Admin: 09/09/19 07:59 Dose: 40 mg Documented by: Ondansetron HCl (Zofran Odt) 4 mg SL Q4-6HP PRN; Protocol PRN Reason: Nausea And Vomiting Ondansetron HCl (Zofran) 4 mg IV Q4-6HP PRN; Protocol PRN Reason: Nausea And Vomiting Budesonide/Formoterol Fumarate [Symbicort] 160-4.5 Mcg Inhaler 2 dose INH BID [facility] Last Admin: 09/08/19 23:02 Dose: 2 dose Documented by: Polyethylene Glycol (Miralax) 17 gm PO DAILYP PRN PRN Reason: Constipation Polysaccharide Iron Complex (Ferrex 150) 150 mg PO QPMCC [facility] Last Admin: 09/08/19 17:46 Dose: 150 mg Documented by: Potassium Chloride (Klor-Con) 40 meq PO DAILYP PRN PRN Reason: K+ < 3.5 Senna/Docusate Sodium (Senna Plus Tablet) 1 tab PO [facility] Last Admin: 09/08/19 22:55 Dose: Not Given Documented by: Simvastatin (Zocor) 20 mg PO [facility] Last Admin: 09/08/19 22:55 Dose: 20 mg Documented by: Sodium Chloride (Saline Flush) 10 ml IV Q8 [facility] Last Admin: 09/09/19 05:52 Dose: 10 ml Documented by: Thiamine HCl (Vitamin B1) 100 mg PO DAILY [facility] Last Admin: 09/08/19 08:40 Dose: 100 mg Documented by: Zolpidem Tartrate (Ambien) 10 mg PO QHS PRN PRN Reason: Sleep Last Admin: 09/08/19 22:54 Dose: 10 mg Documented by: Medical - PN: A/P - Time Spent With Patient Total time spent is greater than 50% in coordination of care (as documented) at patient's floor/unit and/or counseling patient: Greater than 35 minutes (1) Chronic combined systolic and diastolic CHF, NYHA class 4 Problem details: rLVEF 15% with AICD Grade III/III D/Dysfx End stage cardiomyopathy with low BP Status: Chronic Assessment and plan: * NYHA class IV systolic heart failure with EF 15%. Status post defibrillator placement. Now with acute decompensation evident on chest imaging with worsening dyspnea/orthopnea. Clinical improvement noted on diuretics. Restarted on home medication including beta-paola/spironolactone. RAFFI inhibitor on hold per nephrology * Cardiorenal syndrome -nephrology consulted and recommends holding RAFFI inhibitor. * History of CAD continue beta-paola/spironolactone/simvastatin/aspirin. Anti coagulation (held by cardiology after recent GI bleed) * History of COPD continue Symbicort * GERD continue PPI * Degenerative joint disease * DNR * Prophylaxis heparin Plan * Continued diuresis * Goals of care discussion * Remains high risk mortality in light of advanced heart failure * Pre-existing medical condition management as above * PT OT nutrition support Current Visit: Yes
--- NOTE | 2019-09-09 09:51 | Internal Med Progress Note ---
Medical - PN: Subj Patient information: Note initiated : 09/09/19 at 9:47 am Service Date, if different from initiated Date: [] Patient: Irvin Cannon a 63 y/o M admitted on 09/07/19 for Abdominal Pain . Chief Complaint: [] Interval history: Mr. Cannon is a 63 year old M with history of ischemic cardiomyopathy with NYHA c lass IV systolic heart failure status post defibrillator/CABG 1993. He presents to the ER with 2 weeks onset of progressive weakness diarrhea loss of appetite discomfort, increasing weight gain and lower extremity swelling. Patient has been feeling short of breath unable to get out of bed or function. Symptoms are progressed from dyspnea at maximal exertion to dyspnea at rest. He does feel orthopneic. With above symptoms patient is accompanied with his to the ER. Per history patient denies recent sick contact/changes medication or NSAID intake. He denies high salt diet. He follows up with cardiology Dr. Silvano CISSE at [place] and recently established with heart clinic [place] but is scheduled for appointment in November. Patient has a complicated last few months with recurrent GI bleed back in May and subsequently a months earlier where he was shipped to [place] but work-up was unremarkable. Anticoagulants were discontinued during that visit. Ever since patient has noted gradual failure to thrive loss of appetite and generalized deconditioning. Per cardiology has recommended palliative care for end-stage heart failure. Patient however would like to continue aggressive treatment to evaluate symptoms short of mechanical ventilation and CPR. He also follows up with nephrology for chronic kidney disease Initial work-up in the ER was consistent with hypotension/CHF on chest imaging. However Lasix was not administered in light of hypotension. Hospitalist service was consulted. At time evaluation patient is accompanied with his . He refuses to transfer to tertiary center despite end-stage heart failure requiring specialized cardiology service. He wishes to stay at [facility] for a trial of diuretics and pressors. He clearly indicated that if he fails to improve he would choose comfort care/palliation for end-of-life transition. He clearly understand that we are unable to provide in-depth cardiology work-up or advanced treatment of heart failure as he lacked the capacity and cardiology services. Patient and clearly indicated they understand the risk that may include due to worsening heart failure and would like to be admitted at [facility] for treatment of heart failure to the extent possible. 09/08-patient showed minimal improvement on diuresis. Systolics soft around mid 80s. Case discussed with Dr. Armen Walter on-call for Dr. Silvano Cisse, reviewed prior blood work/records and recommends an outpatient follow-up following discharge for transplant candidacy in light of advanced heart failure and age. His last visit was in April and thereafter he has not followed up with cardiology at [place] but is scheduled to follow at the local clinic in November. Furthermore cardiology recommended if the patient decompensate he can be transferred for further management as inpatient. Information was relayed to patient and . No overnight events. No other concerns per nursing staff. 09/09-patient was anxious and agitated last night. Nursing staff concerned about possible withdrawal from alcohol. Ativan administered however patient became confused. affirms that patient has not been drinking too much and Ativan makes him very drowsy and confused. Continue to diuresis. Systolic stable around mid 80s. No overnight fever chills except for tachycardia on telemetry. Creatinine at 1.6 - Constitutional Vitals: Vital Signs Temp Pulse Resp BP Pulse Ox 97.7 F 98 H 20 91/76 94 09/09/19 08:00 09/08/19 20:01 09/09/19 08:00 09/09/19 08:00 09/09/19 08:00 Period Temp Pulse Resp BP Sys/Cheema Pulse Ox Last 24 Hr 97.7 F-98.2 F 89-122 12-28 88-108/66-87 87-100 Intake and Output 09/08/19 09/09/19 09/09/19 21:59 05:59 13:59 Intake Total 760 360 Output Total 230 190 15 Balance 530 -190 345 Weight 155 lb Intake & Output: Intake & Output 09/08/19 09/09/19 09/09/19 21:59 05:59 13:59 Intake Total 760 360 Output Total 230 190 15 Balance 530 -190 345 Weight 155 lb Intake: Oral 760 360 Output: Urine Catheter Amount 230 190 15 Other: Urine Appearance Clear Urine Color Dark Nikky Urine Odor Normal Stool Size Small Small Stool Color Brown Brown Stool Consistency Liquid Soft # Bowel Movements 1 General appearance: no acute distress Exam: Fatigue lethargic Minimally labored breathing Telemetry A. fib tachycardia Defibrillator left anterior chest Abdomen soft Improved lymphedema Medical - PN: Obj Da - Labs CBC & Chem 7: 09/09/19 05:06 09/09/19 05:06 Labs: Abnormal Lab Results 09/09/19 09/09/19 09/08/19 05:06 05:06 04:58 RBC 3.74 L Hgb 9.4 L Hct 30.6 L POC Hct MCH 25.1 L MCHC 30.7 L RDW 16.5 H MPV 11.6 H Lymph % (Auto) Lymph # (Auto) Seg Neutrophils % 89 H Lymphocytes % 4 L Nucleated RBCs RBC Morphology Abnorm A Polychromasia Few A Hypochromasia Few A Anisocytosis 1+ A Ovalocytes Few A POC Chloride Chloride Carbon Dioxide 21 L 18 L Anion Gap 18.0 H 20.0 H BUN 25 H Creatinine 1.6 H 1.5 H POC Creatinine Glucose 108 H POC Glucose Uric Acid 13.3 H 12.8 H POC WB Ioniz Calcium Total Bilirubin 1.6 H 1.5 H Direct Bilirubin 0.7 H 0.5 H Lactate Dehydrogenase 260 H 279 H Albumin/Globulin Ratio 0.9 L 09/08/19 09/07/19 09/07/19 04:58 10:08 09:45 RBC 3.67 L Hgb 9.4 L Hct 32.5 L POC Hct 30.0 L MCH 25.6 L MCHC 28.9 L RDW 16.8 H MPV 12.3 H Lymph % (Auto) Lymph # (Auto) Seg Neutrophils % Lymphocytes % Nucleated RBCs 1 H RBC Morphology Abnorm A Polychromasia Hypochromasia 1+ A Anisocytosis 1+ A Ovalocytes Few A POC Chloride 95 L Chloride 94 L Carbon Dioxide Anion Gap BUN Creatinine 1.6 H POC Creatinine 1.8 H Glucose 111 H POC Glucose 115 H Uric Acid POC WB Ioniz Calcium 1.06 L Total Bilirubin 1.2 H Direct Bilirubin Lactate Dehydrogenase Albumin/Globulin Ratio 09/07/19 09:45 RBC 3.57 L Hgb 9.1 L Hct 29.5 L POC Hct MCH 25.5 L MCHC 30.8 L RDW 16.2 H MPV 11.7 H Lymph % (Auto) 12.1 L Lymph # (Auto) 0.55 L Seg Neutrophils % Lymphocytes % Nucleated RBCs RBC Morphology Polychromasia Hypochromasia Anisocytosis Ovalocytes POC Chloride Chloride Carbon Dioxide Anion Gap BUN Creatinine POC Creatinine Glucose POC Glucose Uric Acid POC WB Ioniz Calcium Total Bilirubin Direct Bilirubin Lactate Dehydrogenase Albumin/Globulin Ratio Meds: Medications Acetaminophen (Tylenol) 650 mg PO Q4-6HP PRN; Protocol PRN Reason: Per Pain Protocol/Fever > 101 Albuterol/Ipratropium (Duoneb) 3 ml NEB Q4HP PRN PRN Reason: Shortness Of Breath Last Admin: 09/09/19 01:17 Dose: 3 ml Documented by: Bisacodyl (Dulcolax) 10 mg VT Q2-3DAYS PRN PRN Reason: Constipation [facility] ([facility]) [facility] Last Admin: 09/09/19 07:59 Dose: 6.25 mg Documented by: Cyanocobalamin (Vitamin B-12) 1,000 mcg PO BID [facility] Stop: 09/12/19 09:01 Last Admin: 09/09/19 04:18 Dose: 1,000 mcg Documented by: Docusate Sodium (Colace) 100 mg PO BID [facility] Last Admin: 09/08/19 22:11 Dose: 100 mg Documented by: Doxycycline Hyclate (Doxycycline Hyclate) 100 mg PO DAILY [facility] Last Admin: 09/08/19 08:40 Dose: 100 mg Documented by: Folic Acid (Folic Acid) 1 mg PO DAILY [facility] Last Admin: 09/08/19 08:40 Dose: 1 mg Documented by: Furosemide (Lasix) 40 mg IV BIDD [facility] Last Admin: 09/08/19 17:48 Dose: Not Given Documented by: Heparin Sodium (Porcine) (Heparin) 5,000 unit SQ Q12 [facility] Last Admin: 09/08/19 22:54 Dose: 5,000 unit Documented by: Magnesium Sulfate (Magnesium Sulfate) 2 gm in 50 mls @ 50 mls/hr IV UD PRN PRN Reason: MG = or < 1.7 Norepinephrine Bitartrate 16 (mg/ Sodium Chloride) 250 mls @ 9.375 mls/hr IV Q24H [facility]; Protocol Last Admin: 09/08/19 14:57 Dose: Not Given Documented by: Sodium Chloride (Sodium Chloride 0.9%) 250 mls @ 20 mls/hr IV .[id number] [facility] Last Admin: 09/09/19 04:17 Dose: Not Given Documented by: Iron Carb/Multivit/[place]/Folic Acid (Multivitamin W/Minerals) 1 tab PO DAILY [facility] Last Admin: 09/08/19 08:40 Dose: 1 tab Documented by: Magnesium Oxide (Magnesium Oxide) 400 mg PO DAILY [facility] Last Admin: 09/08/19 08:40 Dose: 400 mg Documented by: Melatonin (Melatonin 3mg Tablet) 3 mg PO HSP PRN PRN Reason: Insomnia Omeprazole (Prilosec) 40 mg PO ACB [facility] Last Admin: 09/09/19 07:59 Dose: 40 mg Documented by: Ondansetron HCl (Zofran Odt) 4 mg SL Q4-6HP PRN; Protocol PRN Reason: Nausea And Vomiting Ondansetron HCl (Zofran) 4 mg IV Q4-6HP PRN; Protocol PRN Reason: Nausea And Vomiting Budesonide/Formoterol Fumarate [Symbicort] 160-4.5 Mcg Inhaler 2 dose INH BID [facility] Last Admin: 09/08/19 23:02 Dose: 2 dose Documented by: Polyethylene Glycol (Miralax) 17 gm PO DAILYP PRN PRN Reason: Constipation Polysaccharide Iron Complex (Ferrex 150) 150 mg PO QPMCC [facility] Last Admin: 09/08/19 17:46 Dose: 150 mg Documented by: Potassium Chloride (Klor-Con) 40 meq PO DAILYP PRN PRN Reason: K+ < 3.5 Senna/Docusate Sodium (Senna Plus Tablet) 1 tab PO [facility] Last Admin: 09/08/19 22:55 Dose: Not Given Documented by: Simvastatin (Zocor) 20 mg PO [facility] Last Admin: 09/08/19 22:55 Dose: 20 mg Documented by: Sodium Chloride (Saline Flush) 10 ml IV Q8 [facility] Last Admin: 09/09/19 05:52 Dose: 10 ml Documented by: Thiamine HCl (Vitamin B1) 100 mg PO DAILY [facility] Last Admin: 09/08/19 08:40 Dose: 100 mg Documented by: Zolpidem Tartrate (Ambien) 10 mg PO QHS PRN PRN Reason: Sleep Last Admin: 09/08/19 22:54 Dose: 10 mg Documented by: Medical - PN: A/P - Time Spent With Patient Total time spent is greater than 50% in coordination of care (as documented) at patient's floor/unit and/or counseling patient: 25 - 35 minutes (1) Chronic combined systolic and diastolic CHF, NYHA class 4 Problem details: rLVEF 15% with AICD Grade III/III D/Dysfx End stage cardiomyopathy with low BP Status: Chronic Assessment and plan: * NYHA class IV systolic heart failure with EF 15%. Repeat chest imaging. Continue diuresis. Improved dyspnea and work of breathing. Continue home medication including beta-paola/spironolactone. RAFFI inhibitor on hold per nephrology * Cardiorenal syndrome -nephrology consulted , creatinine around 1.6. RAFFI inhibitor on hold * History of CAD continue beta-paola/spironolactone/simvastatin/aspirin. Anticoagulation (held by cardiology after recent GI bleed) * History of COPD continue Symbicort. No acute flare * GERD continue PPI * Degenerative joint disease * DNR * Prophylaxis heparin Plan * Continued diuresis * Monitor renal function * Patient will need follow-up with heart failure specialist for cardiac transplant candidacy. Appointment scheduled by ramp supervisor Dr. Armen Darling [facility] * Continue pre-existing medical condition management as above * PT OT nutrition support Current Visit: Yes
[2019-09-09] MEDS: MULTIVIT,THER IRON,CA,FA & MIN 1 TABLET PO SCH (11:15)
[2019-09-09] MEDS: HEPARIN 5,000 UNIT/ML VIAL SQ SCH ×2 (11:16→20:50)
[2019-09-09] MEDS: FOLIC ACID 1 MG TABLET PO SCH (11:16)
[2019-09-09] MEDS: THIAMINE 100 MG TABLET PO SCH (11:16)
[2019-09-09] MEDS: DOXYCYCLINE HYCLATE 100 MG TABLET.ORL PO SCH (11:16)
[2019-09-09] MEDS: MAGNESIUM OXIDE 400 MG TABLET PO SCH (11:17)
[2019-09-09] MEDS: DOCUSATE SODIUM 100 MG CAPSULE PO SCH ×2 (11:26→20:45)
[2019-09-09] MEDS: Budesonide/Formoterol Fumarate [Symbicort] 160-4.5 mcg Inhaler INH SCH ×2 (11:26→20:50)
--- NOTE | 2019-09-09 11:29 | XRay Report ---
CLINICAL INFORMATION:Congestive heart failure TECHNIQUE: AP portable semiupright chest x-ray COMPARISON: Previous chest x-rays dated 09/07/2019, 08/03/2019, 06/21/2019 FINDINGS:Previous median sternotomy. There are multiple surgical clips. Again demonstrated is a left-sided power pack with a single lead to the left of midline There is significant cardiomegaly. Infiltrates are present consistent with congestive heart failure. Probable pleural effusions, right worse than left. Findings are worse than on 09/07/2019. IMPRESSION: 1. Cardiomegaly and findings consistent with congestive heart failure 2. Interval worsening since 09/07/2019 Interpreted and Authenticated by: Miguel Dewey 09/09/19
[2019-09-09] MEDS: FUROSEMIDE 40 MG/4 ML VIAL IV SCH ×2 (11:31→18:00)
[2019-09-09] MEDS: NOREPINEPHRINE BITARTRATE 16 MG in 0.9 % SODIUM CHLORIDE 234 ML IV SCH (16:34)
[2019-09-09] MEDS: IRON POLYSACCHARIDE COMPLEX 150 MG CAPSULE PO SCH (18:00)
[2019-09-09] MEDS: SENNOSIDES/DOCUSATE SODIUM 1 TAB TABLET PO SCH (20:45)
[2019-09-09] MEDS: ZOLPIDEM 5 MG TABLET PO PRN (20:51)
[2019-09-09] MEDS: SIMVASTATIN 20 MG TABLET PO SCH (20:51)
[2019-09-10] MEDS: IPRATROPIUM/ALBUTEROL 3 ML AMPUL.NEB NEB PRN ×2 (05:55→10:25)
[2019-09-10] MEDS: 0.9 % SODIUM CHLORIDE 250 ML IV SCH ×2 (05:55→17:42)
[2019-09-10] MEDS: 0.9 % SODIUM CHLORIDE 10 ML SYRINGE IV SCH ×3 (05:55→21:38)
[2019-09-10 06:45] LABS: Hematocrit 29.9 % (40.1-51.0); Hemoglobin 9.2 g/dL (13.7-17.5); Mean Cell Volume 82.4 fL (80.0-100.0); Mean Corpuscular HGB Conc 30.8 g/dL (31.0-36.0); Mean Platelet Volume 12.4 fL (7.4-10.4); Platelet Count 196 K/mcL (140-440); RBC 3.63 M/mcL (4.63-6.08); Red Cell Distribution Width 16.5 % (11.5-14.5); WBC 6.6 K/mcL (4.50-11.00)
[2019-09-10 07:04] LABS: ALT/SGPT 12 U/l (0-40); AST/SGOT 31 U/l (0-37); Albumin 3.3 gm/dL (3.2-5.2); Alkaline Phosphatase 100 U/L (39-117); Bilirubin,Direct 0.6 mg/dL (0.0-0.3); Bilirubin,Total 1.3 mg/dL (0.0-1.0); Blood Urea Nitrogen 28 mg/dl (8-23); Calcium 9.3 mg/dl (8.6-10.4); Carbon Dioxide 23 mmol/L (22-30); Globulin 3.2 gm/dL (2.2-3.7); Glomerular Filtration Rate 39; Glucose 115 mg/dL (70-105); Lactate Dehydrogenase 248 U/L (94-250); Phosphorous 4.2 mg/dL (2.7-4.5); Triglycerides 55 mg/dl (<150); Uric Acid 13.1 mg/dL (2.5-8.0)
[2019-09-10 07:05] LABS: Chloride 93 mmol/L (96-108)
[2019-09-10] MEDS: FUROSEMIDE 40 MG/4 ML VIAL IV SCH ×2 (07:43→16:51)
[2019-09-10] MEDS: OMEPRAZOLE 20 MG CAPSULE PO SCH (07:43)
[2019-09-10] MEDS: CARVEDILOL 6.25 MG TABLET PO SCH ×2 (07:43→16:51)
[2019-09-10 08:02] LABS: Anisocytosis 1+ (NONE SEEN); Band Neutrophils % 2 % (0-10); Basophils % (Manual) 2 % (0-2); Eosinophils % (Manual) 3 % (0-7); Hypochromasia 2+ (NONE SEEN); Lymphocytes % 8 % (15-49); Monocytes % (Manual) 5 % (1-12); Platelet Estimate NORMAL (NORMAL); Polychromasia 1+ (NONE SEEN); RBC Morphology ABNORM (NORMAL); Segmented Neutrophils % 80 % (38-78)
[2019-09-10] MEDS: HEPARIN 5,000 UNIT/ML VIAL SQ SCH ×2 (08:38→21:38)
[2019-09-10] MEDS: FOLIC ACID 1 MG TABLET PO SCH (08:38)
[2019-09-10] MEDS: MULTIVIT,THER IRON,CA,FA & MIN 1 TABLET PO SCH (08:38)
[2019-09-10] MEDS: DOXYCYCLINE HYCLATE 100 MG TABLET.ORL PO SCH (08:38)
[2019-09-10] MEDS: Budesonide/Formoterol Fumarate [Symbicort] 160-4.5 mcg Inhaler INH SCH ×3 (08:38→22:59)
[2019-09-10] MEDS: THIAMINE 100 MG TABLET PO SCH (08:38)
[2019-09-10] MEDS: CYANOCOBALAMIN (VITAMIN B-12) 500 MCG TABLET PO SCH ×2 (08:38→21:38)
[2019-09-10] MEDS: MAGNESIUM OXIDE 400 MG TABLET PO SCH (08:38)
[2019-09-10] MEDS: DOCUSATE SODIUM 100 MG CAPSULE PO SCH ×2 (08:44→21:39)
[2019-09-10] MEDS: ONDANSETRON 4 MG/2 ML VIAL IV PRN (09:27)
--- NOTE | 2019-09-10 10:16 | Internal Med Progress Note ---
Medical - PN: Subj Patient information: Note initiated : 09/10/19 at 10:11 am Service Date, if different from initiated Date: [] Patient: Irvin Cannon a 63 y/o M admitted on 09/07/19 for Abdominal Pain . Chief Complaint: [] Interval history: Mr. Cannon is a 63 year old M with history of ischemic cardiomyopathy with NYHA class IV systolic heart failure status post defibrillator/CABG 1993. He presents to the ER with 2 weeks onset of progressive weakness diarrhea loss of appetite discomfort, increasing weight gain and lower extremity swelling. Patient has been feeling short of breath unable to get out of bed or function. Symptoms are progressed from dyspnea at maximal exertion to dyspnea at rest. He does feel orthopneic. With above symptoms patient is accompanied with his to the ER. Per history patient denies recent sick contact/changes medication or NSAID intake. He denies high salt diet. He follows up with cardiology Dr. Silvano CISSE at [place] and recently established with heart clinic [place] but is scheduled for appointment in November. Patient has a complicated last few months with recurrent GI bleed back in May and subsequently a months earlier where he was shipped to [place] but work-up was unremarkable. Anticoagulants were discontinued during that visit. Ever since patient has noted gradual failure to thrive loss of appetite and generalized deconditioning. Per cardiology has recommended palliative care for end-stage heart failure. Patient however would like to continue aggressive treatment to evaluate symptoms short of mechanical ventilation and CPR. He also follows up with nephrology for chronic kidney disease Initial work-up in the ER was consistent with hypotension/CHF on chest imaging. However Lasix was not administered in light of hypotension. Hospitalist service was consulted. At time evaluation patient is accompanied with his . He refuses to transfer to tertiary center despite end-stage heart failure requiring specialized cardiology service. He wishes to stay at [facility] for a trial of diuretics and pressors. He clearly indicated that if he fails to improve he would choose comfort care/palliation for end-of-life transition. He clearly understand that we are unable to provide in-depth cardiology work-up or advanced treatment of heart failure as he lacked the capacity and cardiology services. Patient and clearly indicated they understand the risk that may include due to worsening heart failure and would like to be admitted at [facility] for treatment of heart failure to the extent possible. 09/08-patient showed minimal improvement on diuresis. Systolics soft around mid 80s. Case discussed with Dr. Armen Walter on-call for Dr. Silvano Cisse, reviewed prior blood work/records and recommends an outpatient follow-up following discharge for transplant candidacy in light of advanced heart failure and age. His last visit was in April and thereafter he has not followed up with cardiology at [facility] but is scheduled to follow at the local clinic in November. Furthermore cardiology recommended if the patient decompensate he can be transferred for further management as inpatient. Information was relayed to pat jayashree and . No overnight events. No other concerns per nursing staff. 09/09-patient was anxious and agitated last night. Nursing staff concerned about possible withdrawal from alcohol. Ativan administered however patient became confused. affirms that patient has not been drinking too much and Ativan makes him very drowsy and confused. Continue to diuresis. Systolic stable around mid 80s. No overnight fever chills except for tachycardia on telemetry. Creatinine at 1.6 09/10-patient clinically worsening with increasing dyspnea/orthopnea and worsening creatinine in response to diuretics. Patient in cardiorenal syndrome. Systolics around low 80s. Until now patient has been unwilling to be transferred to tertiary center but wishes to try another day of treatment at [facility] including diuretics following which he would consider transfer to tertiary center if he continues to feel worse. at bedside agrees with plan. - Constitutional Vitals: Vital Signs Temp Pulse Resp BP Pulse Ox 98.3 F 96 H 24 H 94/73 97 09/10/19 08:01 09/09/19 20:25 09/10/19 05:59 09/10/19 08:01 09/10/19 08:01 Period Temp Pulse Resp BP Sys/Cheema Pulse Ox Last 24 Hr 97.1 F-98.8 F 66-138 16-24 74-112/56-83 90-100 Intake and Output 09/09/19 09/10/19 09/10/19 21:59 05:59 13:59 Intake Total 200 Output Total 300 210 57 Balance -100 -210 -57 Weight 153 lb 12.8 oz Intake & Output: Intake & Output 09/09/19 09/10/19 09/10/19 21:59 05:59 13:59 Intake Total 200 Output Total 300 210 57 Balance -100 -210 -57 Weight 153 lb 12.8 oz Intake: Oral 200 Output: Urine Catheter Amount 300 210 57 Other: Meal Dinner Percent of Meal Consumed 50% Feeding Ability Independent Urine Appearance Clear Uretheral (Mena) Clear Clear Urine Color Straw Bright Yellow Uretheral (Mena) Straw Straw General appearance: no acute distress Exam: Fatigue lethargic Flat affect Labored breathing/orthopneic Anxious Nondistended abdomen Lymphedema improved Medical - PN: Obj Da - Labs CBC & Chem 7: 09/10/19 04:23 09/10/19 04:23 Labs: Abnormal Lab Results 09/10/19 09/10/19 09/09/19 04:23 04:23 05:06 RBC 3.63 L Hgb 9.2 L Hct 29.9 L POC Hct MCH 25.3 L MCHC 30.8 L RDW 16.5 H MPV 12.4 H Lymph % (Auto) Lymph # (Auto) Seg Neutrophils % 80 H Lymphocytes % 8 L Nucleated RBCs RBC Morphology Abnorm A Polychromasia 1+ A Hypochromasia 2+ A Anisocytosis 1+ A Ovalocytes Sodium 131 L POC Chloride Chloride 93 L Carbon Dioxide 21 L Anion Gap 18.0 H BUN 28 H 25 H Creatinine 1.8 H 1.6 H POC Creatinine Glucose 115 H 108 H POC Glucose Uric Acid 13.1 H 13.3 H POC WB Ioniz Calcium Total Bilirubin 1.3 H 1.6 H Direct Bilirubin 0.6 H 0.7 H Lactate Dehydrogenase 260 H Albumin/Globulin Ratio 09/09/19 09/08/19 09/08/19 05:06 04:58 04:58 RBC 3.74 L 3.67 L Hgb 9.4 L 9.4 L Hct 30.6 L 32.5 L POC Hct MCH 25.1 L 25.6 L MCHC 30.7 L 28.9 L RDW 16.5 H 16.8 H MPV 11.6 H 12.3 H Lymph % (Auto) Lymph # (Auto) Seg Neutrophils % 89 H Lymphocytes % 4 L Nucleated RBCs 1 H RBC Morphology Abnorm A Abnorm A Polychromasia Few A Hypochromasia Few A 1+ A Anisocytosis 1+ A 1+ A Ovalocytes Few A Few A Sodium POC Chloride Chloride Carbon Dioxide 18 L Anion Gap 20.0 H BUN Creatinine 1.5 H POC Creatinine Glucose POC Glucose Uric Acid 12.8 H POC WB Ioniz Calcium Total Bilirubin 1.5 H Direct Bilirubin 0.5 H Lactate Dehydrogenase 279 H Albumin/Globulin Ratio 0.9 L 09/07/19 09/07/19 09/07/19 10:08 09:45 09:45 RBC 3.57 L Hgb 9.1 L Hct 29.5 L POC Hct 30.0 L MCH 25.5 L MCHC 30.8 L RDW 16.2 H MPV 11.7 H Lymph % (Auto) 12.1 L Lymph # (Auto) 0.55 L Seg Neutrophils % Lymphocytes % Nucleated RBCs RBC Morphology Polychromasia Hypochromasia Anisocytosis Ovalocytes Sodium POC Chloride 95 L Chloride 94 L Carbon Dioxide Anion Gap BUN Creatinine 1.6 H POC Creatinine 1.8 H Glucose 111 H POC Glucose 115 H Uric Acid POC WB Ioniz Calcium 1.06 L Total Bilirubin 1.2 H Direct Bilirubin Lactate Dehydrogenase Albumin/Globulin Ratio Meds: Medications Acetaminophen (Tylenol) 650 mg PO Q4-6HP PRN; Protocol PRN Reason: Per Pain Protocol/Fever > 101 Albuterol/Ipratropium (Duoneb) 3 ml NEB Q4HP PRN PRN Reason: Shortness Of Breath Last Admin: 09/10/19 05:55 Dose: 3 ml Documented by: Bisacodyl (Dulcolax) 10 mg GA Q2-3DAYS PRN PRN Reason: Constipation [facility] ([facility]) [facility] Last Admin: 09/10/19 07:43 Dose: 6.25 mg Documented by: Cyanocobalamin (Vitamin B-12) 1,000 mcg PO BID [facility] Stop: 09/12/19 09:01 Last Admin: 09/10/19 08:38 Dose: 1,000 mcg Documented by: Docusate Sodium (Colace) 100 mg PO BID [facility] Last Admin: 09/10/19 08:44 Dose: Not Given Documented by: Doxycycline Hyclate (Doxycycline Hyclate) 100 mg PO DAILY [facility] Last Admin: 09/10/19 08:38 Dose: 100 mg Documented by: Folic Acid (Folic Acid) 1 mg PO DAILY [facility] Last Admin: 09/10/19 08:38 Dose: 1 mg Documented by: Furosemide (Lasix) 40 mg IV BIDD [facility] Last Admin: 09/10/19 07:43 Dose: 40 mg Documented by: Heparin Sodium (Porcine) (Heparin) 5,000 unit SQ Q12 [facility] Last Admin: 09/10/19 08:38 Dose: 5,000 unit Documented by: Magnesium Sulfate (Magnesium Sulfate) 2 gm in 50 mls @ 50 mls/hr IV UD PRN PRN Reason: MG = or < 1.7 Norepinephrine Bitartrate 16 (mg/ Sodium Chloride) 250 mls @ 9.375 mls/hr IV Q24H [facility]; Protocol Last Admin: 09/09/19 16:34 Dose: Not Given Documented by: Sodium Chloride (Sodium Chloride 0.9%) 250 mls @ 20 mls/hr IV .[id number] [facility] Last Admin: 09/10/19 05:55 Dose: Not Given Documented by: Iron Carb/Multivit/[place]/Folic Acid (Multivitamin W/Minerals) 1 tab PO DAILY [facility] Last Admin: 09/10/19 08:38 Dose: 1 tab Documented by: Magnesium Oxide (Magnesium Oxide) 400 mg PO DAILY [facility] Last Admin: 09/10/19 08:38 Dose: 400 mg Documented by: Melatonin (Melatonin 3mg Tablet) 3 mg PO HSP PRN PRN Reason: Insomnia Omeprazole (Prilosec) 40 mg PO ACB [facility] Last Admin: 09/10/19 07:43 Dose: 40 mg Documented by: Ondansetron HCl (Zofran Odt) 4 mg SL Q4-6HP PRN; Protocol PRN Reason: Nausea And Vomiting Ondansetron HCl (Zofran) 4 mg IV Q4-6HP PRN; Protocol PRN Reason: Nausea And Vomiting Last Admin: 09/10/19 09:27 Dose: 4 mg Documented by: Budesonide/Formoterol Fumarate [Symbicort] 160-4.5 Mcg Inhaler 2 dose INH BID [facility] Last Admin: 09/10/19 08:38 Dose: 2 dose Documented by: Polyethylene Glycol (Miralax) 17 gm PO DAILYP PRN PRN Reason: Constipation Polysaccharide Iron Complex (Ferrex 150) 150 mg PO QPMCC [facility] Last Admin: 09/09/19 18:00 Dose: 150 mg Documented by: Potassium Chloride (Klor-Con) 40 meq PO DAILYP PRN PRN Reason: K+ < 3.5 Senna/Docusate Sodium (Senna Plus Tablet) 1 tab PO HS [facility] Last Admin: 09/09/19 20:45 Dose: Not Given Documented by: Simvastatin (Zocor) 20 mg PO HS [facility] Last Admin: 09/09/19 20:51 Dose: 20 mg Documented by: Sodium Chloride (Saline Flush) 10 ml IV Q8 [facility] Last Admin: 09/10/19 05:55 Dose: 10 ml Documented by: Thiamine HCl (Vitamin B1) 100 mg PO DAILY [facility] Last Admin: 09/10/19 08:38 Dose: 100 mg Documented by: Zolpidem Tartrate (Ambien) 10 mg PO QHS PRN PRN Reason: Sleep Last Admin: 09/09/19 20:51 Dose: 10 mg Documented by: Medical - PN: A/P - Time Spent With Patient Total time spent is greater than 50% in coordination of care (as documented) at patient's floor/unit and/or counseling patient: 25 - 35 minutes (1) Chronic combined systolic and diastolic CHF, NYHA class 4 Problem details: rLVEF 15% with AICD Grade III/III D/Dysfx End stage cardiomyopathy with low BP Status: Chronic Assessment and plan: * End-stage heart failure with EF 15%. Worsening pulmonary edema on chest imaging despite diuresis. Increase work of breathing. Continuing beta- paola/spironolactone. RAFFI inhibitor on hold per nephrology due to cardiorenal and worsening creatinine * Cardiorenal syndrome -creatinine worsening. Nephrology on board. RAFFI inhibitor on hold * History of CAD continue beta-paola/spironolactone/simvastatin/aspirin. Anticoagulation (held by cardiology after recent GI bleed) * History of COPD continue Symbicort. No acute flare * GERD continue PPI * Degenerative joint disease * DNR * Prophylaxis heparin Plan * Continued diuresis * Repeat chest imaging * Monitor renal function * Patient will need follow-up with heart failure specialist for advanced heart failure management and cardiac transplant candidacy. Appointment scheduled by appliance sales associate Dr. Armen [facility]ling [facility]. However he continues deteriorate and will likely be transferred to tertiary center in the next 24 to 48 hours if patient chooses to do so. At present he would want to continue existing treatment at [facility] * Continue pre-existing medical condition management as above * PT OT nutrition support Current Visit: Yes
--- NOTE | 2019-09-10 10:45 | XRay Report ---
CLINICAL INFORMATION:Congestive heart failure TECHNIQUE: AP portable upright chest x-ray COMPARISON: Previous examinations dated 09/09/2019, 09/07/2019, 08/03/2019, 06/21/2019 FINDINGS:Previous median sternotomy. Persistent cardiomegaly. There are bilateral infiltrates consistent with congestive heart failure. There are probable bilateral pleural effusions. Examination is essentially unchanged since previous chest x-ray. IMPRESSION: 1. Cardiomegaly and congestive heart failure 2. No significant interval change Interpreted and Authenticated by: Miguel Dewey 09/10/19
[2019-09-10] MEDS: IRON POLYSACCHARIDE COMPLEX 150 MG CAPSULE PO SCH (16:51)
[2019-09-10] MEDS: NOREPINEPHRINE BITARTRATE 16 MG in 0.9 % SODIUM CHLORIDE 234 ML IV SCH (16:52)
[2019-09-10] MEDS: SIMVASTATIN 20 MG TABLET PO SCH (21:38)
[2019-09-10] MEDS: SENNOSIDES/DOCUSATE SODIUM 1 TAB TABLET PO SCH (21:39)
[2019-09-11] MEDS: IPRATROPIUM/ALBUTEROL 3 ML AMPUL.NEB NEB PRN ×2 (01:06→11:16)
[2019-09-11] MEDS: 0.9 % SODIUM CHLORIDE 10 ML SYRINGE IV SCH ×2 (05:06→14:42)
[2019-09-11] MEDS: 0.9 % SODIUM CHLORIDE 250 ML IV SCH (06:07)
[2019-09-11 06:32] LABS: Hematocrit 30.8 % (40.1-51.0); Hemoglobin 9.2 g/dL (13.7-17.5); Mean Cell Volume 81.9 fL (80.0-100.0); Mean Corpuscular HGB Conc 29.9 g/dL (31.0-36.0); Mean Platelet Volume 12.2 fL (7.4-10.4); Platelet Count 204 K/mcL (140-440); RBC 3.76 M/mcL (4.63-6.08); Red Cell Distribution Width 16.4 % (11.5-14.5); WBC 6.4 K/mcL (4.50-11.00)
[2019-09-11 07:14] LABS: ALT/SGPT 14 U/l (0-40); AST/SGOT 31 U/l (0-37); Albumin 3.5 gm/dL (3.2-5.2); Albumin/Globulin Ratio 1.1 (1.0-2.3); Alkaline Phosphatase 95 U/L (39-117); Bilirubin,Direct 0.6 mg/dL (0.0-0.3); Bilirubin,Total 1.3 mg/dL (0.0-1.0); Blood Urea Nitrogen 33 mg/dl (8-23); Calcium 9.2 mg/dl (8.6-10.4); Carbon Dioxide 21 mmol/L (22-30); Globulin 3.2 gm/dL (2.2-3.7); Glucose 113 mg/dL (70-105); Lactate Dehydrogenase 239 U/L (94-250); Phosphorous 4.3 mg/dL (2.7-4.5); Triglycerides 52 mg/dl (<150); Uric Acid 13.8 mg/dL (2.5-8.0)
[2019-09-11 07:17] LABS: Chloride 92 mmol/L (96-108); Glomerular Filtration Rate 31
[2019-09-11 07:37] LABS: Anisocytosis 1+ (NONE SEEN); Band Neutrophils % 1 % (0-10); Hypochromasia FEW (NONE SEEN); Lymphocytes % 10 % (15-49); Monocytes % (Manual) 3 % (1-12); Ovalocytes 1+ (NONE SEEN); Platelet Estimate NORMAL (NORMAL); Polychromasia FEW (NONE SEEN); RBC Morphology ABNORM (NORMAL); Segmented Neutrophils % 86 % (38-78)
--- NOTE | 2019-09-11 07:51 | Cat Scan Report ---
CLINICAL INFORMATION: Fall. Head injury. COMPARISON: Brain CT scan dated 02/29/2012 TECHNIQUE: Axial noncontrast-enhanced images through the brain. Sagittally and coronally reformatted images. FINDINGS: No acute intracranial hemorrhage. There is no subdural hematoma. No subarachnoid hemorrhage. Basilar cisterns are normal. No intra-axial hemorrhage. No focal intra-axial attenuation abnormality or localized mass effect. No midline shift. Brain parenchyma is normal. There is no hydrocephalus. Brainstem and cerebellum are negative. No calvarial fracture. No lytic lesion. Temporal bones are negative. Facial bone CT scan is pending. IMPRESSION: Negative noncontrast enhanced brain CT scan. The exam was performed using radiation dose optimization techniques including, but not limited to, automated exposure control, adjustment of the mA and/or kV according to patient size and use of iterative reconstruction technique. Interpreted and Authenticated by: Miguel Dewey 09/11/19
[2019-09-11] MEDS: CARVEDILOL 6.25 MG TABLET PO SCH ×2 (07:53→17:34)
[2019-09-11] MEDS: OMEPRAZOLE 20 MG CAPSULE PO SCH (07:53)
--- NOTE | 2019-09-11 07:58 | Cat Scan Report ---
CLINICAL INFORMATION: Fall. Head and face injury TECHNIQUE: Axial thin section images through the facial bones. Sagittal and coronal reformatted images COMPARISON: Brain CT scan dated 09/11/2019 FINDINGS: Nasal bones are negative. No nasal bone fracture. Zygomatic arches are negative. No zygomaticomaxillary complex fracture. No orbital blowout fracture. Medial and inferior mallory of the orbits are negative. Heart palate is normal. Pterygoid plates are normal. Mandible is negative. There is no mandibular fracture or dislocation. There is almost complete opacification of the left maxillary sinus. There is no air-fluid level. No evidence for hemorrhage. Right maxillary sinus, ethmoid sinuses, frontal sinuses, sphenoid sinuses are negative. Visualized portions of the temporal bones are negative. No evidence for basilar skull fracture. Incidental note is made of severe degenerative disc disease at C4-5. Moderate to severe degenerative disc disease at C5-6. There is right periorbital soft tissue swelling. This is preseptal. Globes are normal bilaterally. No intraorbital abnormality IMPRESSION: 1. Right periorbital soft tissue swelling. No intraorbital abnormality 2. Near complete opacification of left maxillary sinus consistent with inflammatory disease. 3. Degenerative disc disease in the cervical spine 4. No facial bone fracture Interpreted and Authenticated by: Miguel Dewey 09/11/19
--- NOTE | 2019-09-11 08:58 | Nephrology Consult Note ---
History of Present Illness - Reason for Consult Patient information: Note initiated : 09/11/19 at 8:56 am Patient: Irvin Cannon 63 y/o M admitted on 09/07/19 for Abdominal Pain . Consult date: 09/11/19 acute renal failure, chronic renal failure, hyponatremia, metabolic acidosis Requesting physician: Chris Shi - Chief Complaint Weakness - History of Present Illness Irvin Cannon is a 63-year-old male with ischemic cardiomyopathy s/p defibrillator/CABG in 1993, chronic atrial fibrillation, chronic kidney disease stage 3, presented to the ED for progressive weakness and admitted on 09/07/19. Serum creatinine trend is up since 09/09/19. He received Furosemide 40 mg IV BID but only had 1.1 L negative balance since admission. He is currently on Furosemide 40 mg PO BID. he has been followed by Dr. Kauffman for nephrology. There is no recent renal imaging study. Review of Systems Constitutional: fatigue, weakness Nose, mouth and throat: no nasal congestion, no sore throat Cardiovascular: no chest pain, no palpatations Respiratory: cough, dyspnea on exertion Gastrointestinal: no abdominal pain, no diarrhea Genitourinary: no dysuria, no hematuria Integumentary: no rash, no wounds Neurological: no confusion, no focal weakness Psychiatric: no anxiety, no panic attacks Hematologic/Lymphatic: no easy bleeding, no easy bruising Allergic/Immunologic: no tongue swelling, no uticaria Past History Past medical history: Medical History (Last Reviewed 09/04/19 @ 09:52 by Karen Patton RN) Cardiorenal syndrome with renal failure (Chronic) Chronic combined systolic and diastolic CHF, NYHA class 4 (Chronic) Portal hypertensive gastropathy (Chronic) Chronic alcoholic liver disease (Chronic) PVD (peripheral vascular disease) (Chronic) Acute renal failure (Acute) Chronic systolic congestive heart failure, NYHA class 3 (Chronic) Alcohol abuse (Chronic) Dilated cardiomyopathy (Chronic) Acute posthemorrhagic anemia (Chronic) Skin sore (Chronic) Gastric varices (Chronic) Coagulopathy (Chronic) Acute kidney injury (Chronic) Weakness (Chronic) Fall (Chronic) Anemia (Chronic) UGIB (upper gastrointestinal bleed) (Chronic) GI bleed (Chronic) Hypotension (Chronic) Cardiomyopathy (Chronic) Congestive heart failure (Chronic) Chronic anticoagulation (Chronic) Atrial fibrillation, chronic (Chronic) Hypertension, essential (Chronic) Hyperlipidemia (Chronic) History of myocardial infarction (Chronic) History of CHF (congestive heart failure) (Chronic) Anaphylaxis (Chronic) Abdominal pain (Resolved) Acute exacerbation of chronic obstructive airways disease (Resolved) Acute hepatitis (Resolved) Allergic reaction (Resolved) Allergic reaction (Resolved) Heart failure, systolic, with acute decompensation (Resolved) Liver function failure (Resolved) Muscle strain (Resolved) Past surgical history: Past Surgical History (Last Reviewed 09/04/19 @ 09:52 by Karen Patton RN) History of abdominal surgery (Chronic) History of coronary artery bypass graft (Chronic) History of implantable cardiac defibrillator (ICD) (Chronic) History of tonsillectomy (Chronic) History of umbilical hernia repair (Chronic) Past family history: Family History (Last Reviewed 09/04/19 @ 09:52 by Karen Patton RN) Mother Congestive heart failure (CHF) Diabetes mellitus Father Congestive heart failure (CHF) Diabetes mellitus Past social history: Patient quit smoking 5 years ago Drinks at least 6-7 beers per day Denies drug use Lives at home with his Medications and Allergies Home Medications Medication Instructions Recorded Confirmed Type Budesonide/Formoterol Fumarate 2 puff IH BID 10/21/18 09/07/19 History [Symbicort 160-4.5 Mcg Inhaler] Doxycycline Hyclate [Vibramycin] 100 mg PO DAILY 10/21/18 09/07/19 History Magnesium Oxide 400 mg PO DAILY 10/21/18 09/07/19 History Simvastatin [Zocor] 20 mg PO HS 10/21/18 09/07/19 History zolpidem 10 mg tablet 10 mg PO QHS PRN 08/09/19 09/07/19 History furosemide 80 mg tablet 40 mg PO BID tab 08/15/19 09/07/19 History omeprazole 40 mg capsule,delayed 40 mg PO QDAY 08/15/19 09/07/19 History release carvedilol 6.25 mg tablet 6.25 mg PO BID #60 tab 08/16/19 09/07/19 Rx nut.tx.imp.renal fxn,lac-reduc 1 each PO .tid ac #24 each 08/29/19 09/04/19 Rx 0.04 gram-1.8 kcal/mL oral liquid Captopril [Capoten] 12.5 mg PO BID 09/07/19 09/07/19 History Poly-Iron 150 Forte Capsule 150 mg PO QDAY 09/07/19 09/07/19 History Spironolactone 12.5 mg PO BID 09/07/19 09/07/19 History Allergies Allergy/AdvReac Type Severity Reaction Status Date / Time amiodarone Allergy Intermediate Rash Verified 09/07/19 09:37 Exam - Vital Signs Vital signs: Temp Pulse Resp BP Pulse Ox 98.1 F 94 H 16 91/74 98 09/11/19 08:01 09/10/19 10:25 09/11/19 08:01 09/11/19 08:01 09/11/19 08:01 - General Appearance General appearance: chronically ill, fatigue EENT: mucous membranes dry Neck: supple Respiratory: clear Cardiology: edema Gastrointestinal: no tenderness Integumentary: warm and dry Neurologic: no focal deficit, alert and oriented x3 Musculoskeletal: no deformities Psychiatric: mood/affect appropriate, cooperative Results - Lab Results 09/11/19 04:20 09/11/19 04:20 Most recent lab results Calcium 9.2 mg/dl (8.6-10.4) 09/11/19 04:20 Phosphorus 4.3 mg/dL (2.7-4.5) 09/11/19 04:20 Magnesium 1.9 mg/dL (1.6-2.5) 09/11/19 04:20 Assessment and Plan (1) Acute on chronic renal failure Acute kidney injury on chronic kidney disease stage 3 with metabolic acidosis and hyponatremia. There is no recent history of IV contrast administration or NSAID use. Previous work up: Urinalysis on 09/04/19: Yellow, Clear, pH 6.0, SG 1.015, protein 15, occult blood negative, leukocyte esterase negative. Urine random total protein/creatinine on 08/15/19: 120 mg/g creatinine. Urine random microalbumin/creatinine on X: mg/g creatinine. CT Abdomen and Pelvis with/without contrast on 03/21/15: Kidneys normal. Progress: Serum creatinine increased from 1.8 to 2.2 in the past 24 hours. Urine output: 657 ml reported in the past 24 hours. I/O net -1.1 L since admission on 09/07/19. Metabolic acidosis. Hyponatremia. Fluid overload. No uremic symptoms. Recommendations/Plan: No acute hemodialysis need. Work up with renal US and urinalysis ordered. Avoid NSAIDs, RAFFI/ARB, nephrotoxic medications and IV contrast. Monitor BMP and urine output. Status: Acute Priority: High Qualifiers: Acute renal failure type: unspecified Chronic kidney disease stage: stage 3 (moderate) Qualified Code(s): N17.9 - Acute kidney failure, unspecified; N18.3 - Chronic kidney disease, stage 3 (moderate) (2) Hyponatremia Status: Acute Priority: Medium (3) Metabolic acidosis Status: Acute Priority: Medium
[2019-09-11] MEDS ORDERED: CITALOPRAM 20 MG TABLET PO SCH (09:00)
[2019-09-11] MEDS ORDERED: FUROSEMIDE 40 MG TABLET PO SCH (09:00)
[2019-09-11] MEDS ORDERED: NOREPINEPHRINE BITARTRATE 16 MG in 0.9 % SODIUM CHLORIDE 234 ML IV PRN (09:45)
[2019-09-11] MEDS: ONDANSETRON 4 MG/2 ML VIAL IV PRN ×2 (10:11→14:41)
[2019-09-11] MEDS: HEPARIN 5,000 UNIT/ML VIAL SQ SCH (10:11)
--- NOTE | 2019-09-11 10:23 | Internal Med Progress Note ---
Medical - PN: Subj Patient information: Note initiated : 09/11/19 at 10:18 am Service Date, if different from initiated Date: [] Patient: Irvin Cannon a 63 y/o M admitted on 09/07/19 for Abdominal Pain . Chief Complaint: [] Interval history: Mr. Cannon is a 63 year old M with history of ischemic cardiomyopathy with NYHA class IV systolic heart failure status post defibrillator/CABG 1993. He presents to the ER with 2 weeks onset of progressive weakness diarrhea loss of appetite discomfort, increasing weight gain and lower extremity swelling. Patient has been feeling short of breath unable to get out of bed or function. Symptoms are progressed from dyspnea at maximal exertion to dyspnea at rest. He does feel orthopneic. With above symptoms patient is accompanied with his to the ER. Per history patient denies recent sick contact/changes medication or NSAID intake. He denies high salt diet. He follows up with cardiology Dr. Silvano CISSE at [facility] and recently established with heart clinic [employer] but is scheduled for appointment in November. Patient has a complicated last few months with recurrent GI bleed back in May and subsequently a months earlier where he was shipped to [place] but work-up was unremarkable. Anticoagulants were discontinued during that visit. Ever since patient has noted gradual failure to thrive loss of appetite and generalized deconditioning. Per cardiology has recommended palliative care for end-stage heart failure. Patient however would like to continue aggressive treatment to evaluate symptoms short of mechanical ventilation and CPR. He also follows up with nephrology for chronic kidney disease Initial work-up in the ER was consistent with hypotension/CHF on chest imaging. However Lasix was not administered in light of hypotension. Hospitalist service was consulted. At time evaluation patient is accompanied with his . He refuses to transfer to tertiary center despite end-stage heart failure requiring specialized cardiology service. He wishes to stay at [facility] for a trial of diuretics and pressors. He clearly indicated that if he fails to improve he would choose comfort care/palliation for end-of-life transition. He clearly understand that we are unable to provide in-depth cardiology work-up or advanced treatment of heart failure as he lacked the capacity and cardiology services. Patient and clearly indicated they understand the risk that may include due to worsening heart failure and would like to be admitted at [facility] for treatment of heart failure to the extent possible. 2/14-patient showed minimal improvement on diuresis. Systolics soft around mid 80s. Case discussed with Dr. Armen Walter on-call for Dr. Silvano Cisse, reviewed prior blood work/records and recommends an outpatient follow-up following discharge for transplant candidacy in light of advanced heart failure and age. His last visit was in April and thereafter he has not followed up with cardiology at [facility] but is scheduled to follow at the local clinic in November. Furthermore cardiology recommended if the patient decompensate he can be transferred for further management as inpatient. Information was relayed to pat jayashree and . No overnight events. No other concerns per nursing staff. 09/09-patient was anxious and agitated last night. Nursing staff concerned about possible withdrawal from alcohol. Ativan administered however patient became confused. affirms that patient has not been drinking too much and Ativan makes him very drowsy and confused. Continue to diuresis. Systolic stable around mid 80s. No overnight fever chills except for tachycardia on telemetry. Creatinine at 1.6 09/10-patient clinically worsening with increasing dyspnea/orthopnea and worsening creatinine in response to diuretics. Patient in cardiorenal syndrome. Systolics around low 80s. Until now patient has been unwilling to be transferred to tertiary center but wishes to try another day of treatment at [facility] including diuretics following which he would consider transfer to tertiary center if he continues to feel worse. at bedside agrees with plan. 09/11. Worsening renal function with creatinine 2.2. Nephrology consulted. 600 cc net negative fluid balance. Patient remains weak and fatigued. This morning fell on the ground injuring his right side of face/forehead while him to get out of bed with his legs getting caught on the sheet. Area of abrasion/bruising on the face and arm and knee. CT head and face unremarkable except for periorbital soft tissue swelling and left maxillary sinusitis. Await callback from [facility] cardiology Dr. Armen Walter for further in situ management as patient has not shown any signs of improvement despite using diuretics and has only led to worsening renal function. Remains a very complex case with end-stage heart failure and imminent need for heart failure specialist. Will attempt to transfer patient to tertiary center today - Constitutional Vitals: Vital Signs Temp Pulse Resp BP Pulse Ox 98.1 F 94 H 16 91/74 98 09/11/19 08:01 09/10/19 10:25 09/11/19 08:01 09/11/19 08:01 09/11/19 08:01 Period Temp Pulse Resp BP Sys/Cheema Pulse Ox Last 24 Hr 97.9 F-98.8 F 94 16-24 86-131/65-105 90-98 Intake and Output 09/10/19 09/11/19 09/11/19 21:59 05:59 13:59 Intake Total 380 520 Output Total 320 140 52 Balance 60 -140 468 Weight 152 lb 8 oz Intake & Output: Intake & Output 09/10/19 09/11/19 09/11/19 21:59 05:59 13:59 Intake Total 380 520 Output Total 320 140 52 Balance 60 -140 468 Weight 152 lb 8 oz Intake: Oral 380 520 Output: Urine Catheter Amount 320 140 52 Other: Meal Dinner Percent of Meal Consumed 10% Feeding Ability Assist with Tray Set Up Urine Appearance Clear Clear Uretheral (Mena) Clear Urine Color Dark Yellow Straw Light Nikky Uretheral (Mena) Straw Urine Odor Normal Stool Size Small Stool Color Brown # Bowel Movements 1 Exam: Fatigue labored Diminished breath sounds bases Abdomen soft Lymphedema improving Mena is draining dark urine Medical - PN: Obj Da - Labs CBC & Chem 7: 09/11/19 04:20 09/11/19 04:20 Labs: Abnormal Lab Results 09/11/19 09/11/19 09/10/19 04:20 04:20 04:23 RBC 3.76 L Hgb 9.2 L Hct 30.8 L MCH 24.5 L MCHC 29.9 L RDW 16.4 H MPV 12.2 H Seg Neutrophils % 86 H Lymphocytes % 10 L RBC Morphology Abnorm A Polychromasia Few A Hypochromasia Few A Anisocytosis 1+ A Ovalocytes 1+ A Sodium 131 L 131 L Chloride 92 L 93 L Carbon Dioxide 21 L Anion Gap 18.0 H BUN 33 H 28 H Creatinine 2.2 H 1.8 H Glucose 113 H 115 H Uric Acid 13.8 H 13.1 H Total Bilirubin 1.3 H 1.3 H Direct Bilirubin 0.6 H 0.6 H Lactate Dehydrogenase 09/10/19 09/09/19 09/09/19 04:23 05:06 05:06 RBC 3.63 L 3.74 L Hgb 9.2 L 9.4 L Hct 29.9 L 30.6 L MCH 25.3 L 25.1 L MCHC 30.8 L 30.7 L RDW 16.5 H 16.5 H MPV 12.4 H 11.6 H Seg Neutrophils % 80 H 89 H Lymphocytes % 8 L 4 L RBC Morphology Abnorm A Abnorm A Polychromasia 1+ A Few A Hypochromasia 2+ A Few A Anisocytosis 1+ A 1+ A Ovalocytes Few A Sodium Chloride Carbon Dioxide 21 L Anion Gap 18.0 H BUN 25 H Creatinine 1.6 H Glucose 108 H Uric Acid 13.3 H Total Bilirubin 1.6 H Direct Bilirubin 0.7 H Lactate Dehydrogenase 260 H Meds: Medications Acetaminophen (Tylenol) 650 mg PO Q4-6HP PRN; Protocol PRN Reason: Per Pain Protocol/Fever > 101 Albuterol/Ipratropium (Duoneb) 3 ml NEB Q4HP PRN PRN Reason: Shortness Of Breath Last Admin: 09/11/19 01:06 Dose: 3 ml Documented by: Bisacodyl (Dulcolax) 10 mg FL Q2-3DAYS PRN PRN Reason: Constipation Carvedilol (Coreg) 6.25 mg [facility] Last Admin: 09/11/19 07:53 Dose: 6.25 mg Documented by: Citalopram Hydrobromide (Celexa) 20 mg PO DAILY [facility] Cyanocobalamin (Vitamin B-12) 1,000 mcg PO BID [facility] Stop: 09/12/19 09:01 Last Admin: 09/10/19 21:38 Dose: 1,000 mcg Documented by: Docusate Sodium (Colace) 100 mg PO BID [facility] Last Admin: 09/10/19 21:39 Dose: Not Given Documented by: Doxycycline Hyclate (Doxycycline Hyclate) 100 mg PO DAILY [facility] Last Admin: 09/10/19 08:38 Dose: 100 mg Documented by: Folic Acid (Folic Acid) 1 mg PO DAILY [facility] Last Admin: 09/10/19 08:38 Dose: 1 mg Documented by: Furosemide (Lasix) 40 mg PO BID [facility] Heparin Sodium (Porcine) (Heparin) 5,000 unit SQ Q12 [facility] Last Admin: 09/11/19 10:11 Dose: 5,000 unit Documented by: Magnesium Sulfate (Magnesium Sulfate) 2 gm in 50 mls @ 50 mls/hr IV UD PRN PRN Reason: MG = or < 1.7 Sodium Chloride (Sodium Chloride 0.9%) 250 mls @ 20 mls/hr IV .[id number] [facility] Last Admin: 09/11/19 06:07 Dose: Not Given Documented by: Norepinephrine Bitartrate 16 (mg/ Sodium Chloride) 250 mls @ 9.375 mls/hr IV Q24HP PRN; Protocol PRN Reason: TITRATE TO KEEP MAP > 65 Iron Carb/Multivit/Financial Investment Adviser/Folic Acid (Multivitamin W/Minerals) 1 tab PO DAILY [facility] Last Admin: 09/10/19 08:38 Dose: 1 tab Documented by: Magnesium Oxide (Magnesium Oxide) 400 mg PO DAILY [facility] Last Admin: 09/10/19 08:38 Dose: 400 mg Documented by: Melatonin (Melatonin 3mg Tablet) 3 mg PO HSP PRN PRN Reason: Insomnia Last Admin: 09/10/19 21:38 Dose: 3 mg Documented by: Omeprazole (Prilosec) 40 mg PO ACB [facility] Last Admin: 09/11/19 07:53 Dose: 40 mg Documented by: Ondansetron HCl (Zofran Odt) 4 mg SL Q4-6HP PRN; Protocol PRN Reason: Nausea And Vomiting Ondansetron HCl (Zofran) 4 mg IV Q4-6HP PRN; Protocol PRN Reason: Nausea And Vomiting Last Admin: 09/11/19 10:11 Dose: 4 mg Documented by: Budesonide/Formoterol Fumarate [Symbicort] 160-4.5 Mcg Inhaler 2 dose INH BID [facility] Last Admin: 09/10/19 22:59 Dose: 2 dose Documented by: Polyethylene Glycol (Miralax) 17 gm PO DAILYP PRN PRN Reason: Constipation Polysaccharide Iron Complex (Ferrex 150) 150 mg PO QPMCC [facility] Last Admin: 09/10/19 16:51 Dose: 150 mg Documented by: Potassium Chloride (Klor-Con) 40 meq PO DAILYP PRN PRN Reason: K+ < 3.5 Senna/Docusate Sodium (Senna Plus Tablet) 1 tab PO HS [facility] Last Admin: 09/10/19 21:39 Dose: Not Given Documented by: Simvastatin (Zocor) 20 mg PO [facility] Last Admin: 02/16/20 21:38 Dose: 20 mg Documented by: Sodium Chloride (Saline Flush) 10 ml IV Q8 [facility] Last Admin: 09/11/19 05:06 Dose: 10 ml Documented by: Thiamine HCl (Vitamin B1) 100 mg PO DAILY [facility] Last Admin: 09/10/19 08:38 Dose: 100 mg Documented by: Medical - PN: A/P - Time Spent With Patient Total time spent is greater than 50% in coordination of care (as documented) at patient's floor/unit and/or counseling patient: 25 - 35 minutes (1) Chronic combined systolic and diastolic CHF, NYHA class 4 Problem details: rLVEF 15% with AICD Grade III/III D/Dysfx End stage cardiomyopathy with low BP Status: Chronic Assessment and plan: * End-stage heart failure with EF 15%. Interval imaging persistence CHF changes despite diuresis. Increase work of breathing. Continuing beta- paola/spironolactone. RAFFI inhibitor on hold . Await callback from cardiology for possible transfer to tertiary center * Cardiorenal syndrome -creatinine worsening to 2.2. Nephrology on board. Renal failure work-up ongoing per nephrology * History of CAD continue beta-paola/spironolactone/simvastatin/aspirin. Anticoagulation (held by cardiology after recent GI bleed) * History of COPD continue Symbicort. No acute flare * GERD continue PPI * Recent GI bleed-anticoagulation hold. Hemoglobin stable around 9. * Degenerative joint disease * DNR * Prophylaxis heparin Plan * Cardiology consult and possible transfer to tertiary center * Switch to oral diuretic * Renal failure work-up per nephrology * Maintain fall risk * Patient will need follow-up with heart failure specialist for advanced heart failure management and cardiac transplant candidacy. Appointment scheduled by taxation accountant Dr. Armen Darling [facility]. However he continues deteriorate and patient now agreeable for transfer to tertiary center. Await callback from [facility] cardiology. * Continue pre-existing medical condition management as above * PT OT nutrition support Current Visit: Yes
[2019-09-11] MEDS: FOLIC ACID 1 MG TABLET PO SCH (10:25)
[2019-09-11] MEDS: THIAMINE 100 MG TABLET PO SCH (10:25)
[2019-09-11] MEDS: MAGNESIUM OXIDE 400 MG TABLET PO SCH (10:25)
[2019-09-11] MEDS: CYANOCOBALAMIN (VITAMIN B-12) 500 MCG TABLET PO SCH (10:25)
[2019-09-11] MEDS: MULTIVIT,THER IRON,CA,FA & MIN 1 TABLET PO SCH (10:25)
[2019-09-11] MEDS: Budesonide/Formoterol Fumarate [Symbicort] 160-4.5 mcg Inhaler INH SCH (10:33)
[2019-09-11] MEDS: DOCUSATE SODIUM 100 MG CAPSULE PO SCH (10:37)
[2019-09-11] MEDS: DOXYCYCLINE HYCLATE 100 MG TABLET.ORL PO SCH (10:37)
--- NOTE | 2019-09-11 12:26 | Transfer Summary ---
Transfer Discharge Sum: Prov Patient information: Note initiated : 09/11/19 at 12:22 pm Service Date, if different from initiated Date: [] Patient: Irvin Cannon 63 y/o M admitted on 09/07/19 for Abdominal Pain . Chief Complaint: [] Date of admission: 09/07/19 14:25 Discharge Date: 09/11/19 Primary care physician: Marisol Rowan Consults: 09/07/19 Consult to Physician [CONS] Stat Comment: Consulting Provider: Chris Shi Reason For Exam: Physician to Consult 09/11/19 07:57 Consult to Physician [CONS] Routine Comment: Consulting Provider: Katie Wolfe Reason For Exam: Physician to Consult Transfer Discharge Sum: Diag - Discharge Diagnosis (1) Chronic combined systolic and diastolic CHF, NYHA class 4 Status: Chronic Problem details: rLVEF 15% with AICD Grade III/III D/Dysfx End stage cardiomyopathy with low BP Transfer Discharge Sum: Med - Medications Active and Home Medications: Home Medications Budesonide/Formoterol Fumarate [Symbicort 160-4.5 Mcg Inhaler] 2 puff IH BID 10/21/18 [History Confirmed 09/07/19] Doxycycline Hyclate [Vibramycin] 100 mg PO DAILY 10/21/18 [History Confirmed 09/07/19] Magnesium Oxide 400 mg PO DAILY 10/21/18 [History Confirmed 09/07/19] Simvastatin [Zocor] 20 mg PO HS 10/21/18 [History Confirmed 09/07/19] zolpidem 10 mg tablet 10 mg PO QHS PRN 08/09/19 [History Confirmed 09/07/19] furosemide 80 mg tablet 40 mg PO BID tab 08/15/19 [History Confirmed 09/07/19] omeprazole 40 mg capsule,delayed release 40 mg PO QDAY 08/15/19 [History Confirmed 09/07/19] carvedilol 6.25 mg tablet 6.25 mg PO BID #60 tab 08/16/19 [Rx Confirmed 09/07/19] nut.tx.imp.renal fxn,lac-reduc 0.04 gram-1.8 kcal/mL oral liquid 1 each PO .tid ac #24 each 08/29/19 [Rx Confirmed 09/04/19] Captopril [Capoten] 12.5 mg PO BID 09/07/19 [History Confirmed 09/07/19] Poly-Iron 150 Forte Capsule 150 mg PO QDAY 09/07/19 [History Confirmed 09/07/19] Spironolactone 12.5 mg PO BID 09/07/19 [History Confirmed 09/07/19] Active Medications Acetaminophen (Tylenol) 650 mg PO Q4-6HP PRN; Protocol PRN Reason: Per Pain Protocol/Fever > 101 Albuterol/Ipratropium (Duoneb) 3 ml NEB Q4HP PRN PRN Reason: Shortness Of Breath Last Admin: 09/11/19 11:16 Dose: 3 ml Documented by: Bisacodyl (Dulcolax) 10 mg AZ Q2-3DAYS PRN PRN Reason: Constipation [facility] Last Admin: 09/11/19 07:53 Dose: 6.25 mg Documented by: Citalopram Hydrobromide (Celexa) 20 mg PO DAILY [facility] Last Admin: 09/11/19 10:25 Dose: 20 mg Documented by: Cyanocobalamin (Vitamin B-12) 1,000 mcg PO BID [facility] Stop: 09/12/19 09:01 Last Admin: 09/11/19 10:25 Dose: 1,000 mcg Documented by: Docusate Sodium (Colace) 100 mg PO BID [facility] Last Admin: 09/11/19 10:37 Dose: 100 mg Documented by: Doxycycline Hyclate (Doxycycline Hyclate) 100 mg PO DAILY [facility] Last Admin: 09/11/19 10:37 Dose: 100 mg Documented by: Folic Acid (Folic Acid) 1 mg PO DAILY [facility] Last Admin: 09/11/19 10:25 Dose: 1 mg Documented by: Furosemide (Lasix) 40 mg PO BID [facility] Last Admin: 09/11/19 10:25 Dose: 40 mg Documented by: Heparin Sodium (Porcine) (Heparin) 5,000 unit SQ Q12 [facility] Last Admin: 09/11/19 10:11 Dose: 5,000 unit Documented by: Magnesium Sulfate (Magnesium Sulfate) 2 gm in 50 mls @ 50 mls/hr IV UD PRN PRN Reason: MG = or < 1.7 Sodium Chloride (Sodium Chloride 0.9%) 250 mls @ 20 mls/hr IV .[id number] [facility] Last Admin: 09/11/19 06:07 Dose: Not Given Documented by: Norepinephrine Bitartrate 16 (mg/ Sodium Chloride) 250 mls @ 9.375 mls/hr IV Q24HP PRN; Protocol PRN Reason: TITRATE TO KEEP MAP > 65 Iron Carb/Multivit/[place]/Folic Acid (Multivitamin W/Minerals) 1 tab PO DAILY [facility] Last Admin: 09/11/19 10:25 Dose: 1 tab Documented by: Magnesium Oxide (Magnesium Oxide) 400 mg PO DAILY [facility] Last Admin: 09/11/19 10:25 Dose: 400 mg Documented by: Melatonin (Melatonin 3mg Tablet) 3 mg PO HSP PRN PRN Reason: Insomnia Last Admin: 09/10/19 21:38 Dose: 3 mg Documented by: Omeprazole (Prilosec) 40 mg PO ACB [facility] Last Admin: 09/11/19 07:53 Dose: 40 mg Documented by: Ondansetron HCl (Zofran Odt) 4 mg SL Q4-6HP PRN; Protocol PRN Reason: Nausea And Vomiting Ondansetron HCl (Zofran) 4 mg IV Q4-6HP PRN; Protocol PRN Reason: Nausea And Vomiting Last Admin: 09/11/19 10:11 Dose: 4 mg Documented by: Budesonide/Formoterol Fumarate [Symbicort] 160-4.5 Mcg Inhaler 2 dose INH BID [facility] Last Admin: 09/11/19 10:33 Dose: 2 dose Documented by: Polyethylene Glycol (Miralax) 17 gm PO DAILYP PRN PRN Reason: Constipation Polysaccharide Iron Complex (Ferrex 150) 150 mg PO QPMCC [facility] Last Admin: 09/10/19 16:51 Dose: 150 mg Documented by: Potassium Chloride (Klor-Con) 40 meq PO DAILYP PRN PRN Reason: K+ < 3.5 Senna/Docusate Sodium (Senna Plus Tablet) 1 tab PO HS [facility] Last Admin: 09/10/19 21:39 Dose: Not Given Documented by: Simvastatin (Zocor) 20 mg PO HS [facility] Last Admin: 09/10/19 21:38 Dose: 20 mg Documented by: Sodium Chloride (Saline Flush) 10 ml IV Q8 [facility] Last Admin: 09/11/19 05:06 Dose: 10 ml Documented by: Thiamine HCl (Vitamin B1) 100 mg PO DAILY [facility] Last Admin: 09/11/19 10:25 Dose: 100 mg Documented by: Transfer Discharge Sum: Hosp Hospital course: Discharge diagnosis * End-stage heart failure with EF 15%. Interval imaging persistent CHF changes despite diuresis. Worsening creatinine and hypotension precluding use of higher dose of Lasix. Increased work of breathing. Remains fatigued lethargic with systolics mid 80s. Continuing beta-paola/spironolactone. RAFFI inhibitor on hold per nephrology. after discussion with straightening press operator helper at [place] patient accepted for further evaluation/management/transplant discussion. * Cardiorenal syndrome -creatinine worsening from 1.6 to 2.2. Nephrology on board. Renal failure work-up ongoing per nephrology * Persistent nausea with bilious emesis. X-ray abdomen unremarkable for obstructive process however NG tube placed following multiple episode of emesis/persistent nausea and retching for the last 2 and half hours. * History of CAD continue beta-paola/spironolactone/simvastatin/aspirin. Anticoagulation (held by cardiology following recent GI bleed) * History of COPD continue Symbicort. No acute flare * Fall with orbital soft tissue laceration. Negative head/face CT. Maintain fall risk status * GERD continue PPI * Recent GI bleed-anticoagulation hold. Hemoglobin stable around 9. * Degenerative joint disease Brief hospital course Mr. Cannon is a 63 year old M with history of ischemic cardiomyopathy with NYHA class IV systolic heart failure status post defibrillator/CABG 1993. He presents to the ER with 2 weeks onset of progressive weakness diarrhea loss of appetite discomfort, increasing weight gain and lower extremity swelling. Patient has been feeling short of breath unable to get out of bed or function. Symptoms are progressed from dyspnea at maximal exertion to dyspnea at rest. He does feel orthopneic. With above symptoms patient is accompanied with his to the ER. Per history patient denies recent sick contact/changes medication or NSAID intake. He denies high salt diet. He follows up with cardiology Dr. Silvano CISSE at [place] and recently established with [facility] [place] [facility]. Patient has a complicated last few months with recurrent GI bleed back in May and subsequently a months earlier where he was shipped to [place] but work-up was unremarkable. Anticoagulants were discontinued during that visit. Ever since patient has noted gradual failure to thrive loss of appetite and generalized deconditioning. Per cardiology has recommended palliative care for end-stage heart failure. Patient however would like to continue aggressive treatment to evaluate symptoms short of mechanical ventilation and CPR. He also follows up with nephrology for chronic kidney disease Initial work-up in the ER was consistent with hypotension/CHF on chest imaging. However Lasix was not administered in light of hypotension. Hospitalist julisa hester was consulted. At time evaluation patient is accompanied with his . He refuses to transfer to tertiary center despite end-stage heart failure requiring specialized cardiology service. He wishes to stay at [facility] for a trial of diuretics and pressors. He clearly indicated that if he fails to improve he would choose comfort care/palliation for end-of-life transition. He clearly understand that we are unable to provide in-depth cardiology work-up or advanced treatment of heart failure as he lacked the capacity and cardiology services. Patient and clearly indicated they understand the risk that may include due to worsening heart failure and would like to be admitted at [facility] for treatment of heart failure to the extent possible. 09/08-patient showed minimal improvement on diuresis. Systolics soft around mid 80s. Case discussed with Dr. Armen Walter on-call for Dr. Silvano Cisse, reviewed prior blood work/records and recommends an outpatient follow-up following discharge for transplant candidacy in light of advanced heart failure and age. His last visit was in April and thereafter he has not followed up with cardiology at [place] but is scheduled to follow at the local clinic in November. Furthermore cardiology recommended if the patient decompensate he can be transferred for further management as inpatient. Information was relayed to patient and . No overnight events. No other concerns per nursing staff. 09/09-patient was anxious and agitated last night. Nursing staff concerned about possible withdrawal from alcohol. Ativan administered however patient became confused. affirms that patient has not been drinking too much and Ativan makes him very drowsy and confused. Continue to diuresis. Systolic stable around mid 80s. No overnight fever chills except for tachycardia on telemetry. Creatinine at 1.6 09/10-patient clinically worsening with increasing dyspnea/orthopnea and worsening creatinine in response to diuretics. Patient in cardiorenal syndrome. Systolics around low 80s. Until now patient has been unwilling to be transferred to tertiary center but wishes to try another day of treatment at [facility] including diuretics following which he would consider transfer to tertiary center if he continues to feel worse. at bedside agrees with plan. 09/11. Worsening renal function with creatinine 2.2. Nephrology consulted. 600 cc net negative fluid balance. Patient remains weak and fatigued. This morning fell on the ground injuring his right side of face/forehead while him to get out of bed with his legs getting caught on the sheet. Area of abrasion/bruising on the face and arm and knee. CT head and face unremarkable except for periorbital soft tissue swelling and left maxillary sinusitis. Await callback from [facility] cardiology Dr. Armen Walter for further in situ management as patient has not shown any signs of improvement despite using diuretics and has only led to worsening renal function. Remains a very complex case with end-stage heart failure and imminent need for heart failure specialist. Will attempt to transfer patient to tertiary center today Addendum Case discussed with Dr. Doshi cardiology. Patient accepted at [place] for further evaluation and management in light of inadequate response to diuresis/worsening renal failure secondary to cardiorenal syndrome in the setting of advanced heart failure with reduced ejection fraction. Patient be transferred via ground ambulance. Patient and appreciated of the care and agrees with plan to transfer to tertiary center. Meanwhile patient started experiencing severe nausea with multiple episodes of vomiting and retching. Abdominal ultrasound no evidence of bowel obstruction. Failed to respond to Zofran/Phenergan over the. 2 and half hours. Shortly prior to transfer to [place] NG tube was placed to help relieve abdominal distention and 150 cc of bilious output was drained following which patient felt a lot better. - Time Spent with Patient Total time spent providing and/or coordinating transfer services: Greater than 30 minutes Transfer Discharge Sum: Exam - Constitutional Vitals: Vital Signs Temp Pulse Resp BP Pulse Ox 09/11/19 11:18 120 H 16 09/11/19 08:01 98.1 F 16 91/74 98 09/11/19 07:01 96/71 09/11/19 06:50 91/70 09/11/19 06:44 89/65 09/11/19 06:04 94 09/11/19 06:02 22 89/68 95 09/11/19 05:01 131/105 96 09/11/19 04:41 98.0 F 24 H 98 09/11/19 04:01 120/93 02/17/20 03:01 18 112/78 95 09/11/19 02:47 92 09/11/19 02:01 22 117/86 92 09/11/19 01:01 22 105/68 97 09/11/19 00:13 95 09/11/19 00:03 97.9 F 24 H 105/66 95 09/10/19 23:20 116/98 96 09/10/19 23:01 20 116/98 96 09/10/19 22:59 93 09/10/19 22:39 20 119/72 97 09/10/19 21:33 90 09/10/19 21:02 97.9 F 22 96/68 95 09/10/19 19:22 95 09/10/19 19:01 20 89/74 93 09/10/19 18:01 101/72 09/10/19 17:01 20 95/75 96 09/10/19 16:01 91/69 95 09/10/19 14:01 86/76 94 09/10/19 13:09 94/70 95 Intake and Output 09/10/19 09/11/19 09/11/19 21:59 05:59 13:59 Intake Total 380 520 Output Total 320 140 52 Balance 60 -140 468 Intake: Oral 380 520 Output: Urine Catheter Amount 320 140 52 Other: Meal Dinner Percent of Meal Consumed 10% Feeding Ability Assist with Tray Set Up Urine Appearance Clear Clear Uretheral (Mena) Clear Urine Color Dark Yellow Straw Light Nikky Uretheral (Mena) Straw Urine Odor Normal Stool Size Small Stool Color Brown # Bowel Movements 1 Weight 152 lb 8 oz Transfer Discharge Sum: Data Procedures and tests throughout hospitalization: Pending Orders 09/07/19 Consult to Physician [CONS] Stat 09/07/19 12:49 Resuscitation Status Routine 09/07/19 14:35 0.9 % Sodium Chloride [Saline Flush] 10 ml IV Q8 0.9 % Sodium Chloride [Sodium Chloride 0.9%] 250 ml IV 20 mls/hr Acetaminophen [Tylenol] 650 mg PO Q4-6HP PRN Bisacodyl [Dulcolax] 10 mg AZ Q2-3DAYS PRN Magnesium Sulfate 2 gm in 50 ml IV UD Melatonin [Melatonin 3Mg Tablet] 3 mg PO HSP PRN Ondansetron [Zofran Odt] 4 mg SL Q4-6HP PRN Ondansetron [Zofran] 4 mg IV Q4-6HP PRN Polyethylene Glycol 3350 [Miralax] 17 gm PO DAILYP PRN Potassium Chloride [Klor-Con] 40 meq PO DAILYP PRN 09/07/19 14:35 Case Management Referral .Routine Admit as Inpatient Routine Ambulate-Progressive PRN Blood Culture PRN PRN cylinder inspector and tester CONT Condition Routine Elevate head of bed .ROUTINE Intake and Output Q1H Occult blood, stool, guaic poc .ALL STOOLS Oral hygiene .ROUTINE PICC Line PRN Specialty Bed PRN Vital Signs Q2H Weight Monitoring QHS RD to Adjust Diet/Supplements as Needed Routine Occupational Therapy Eval & Tx DAILY Physical Therapy Eval & Tx QD-BID Incentive Spirometry Assess/Tx Q2HWA Oxygen Order .Routine 09/07/19 16:19 Indwelling Urinary Catheter CONT 09/07/19 21:00 Cyanocobalamin (Vitamin B-12) [Vitamin B-12] 1,000 mcg PO BID Docusate Sodium [Colace] 100 mg PO BID Heparin 5,000 unit SQ Q12 Patients Own Medication 2 dose INH BID Sennosides/Docusate Sodium [Senna Plus Tablet] 1 tab PO HS Simvastatin [Zocor] 20 mg PO HS 09/08/19 Norovirus Ag Stool-SO Urgent 09/08/19 04:45 Ipratropium/Albuterol [Duoneb] 3 ml NEB Q4HP PRN 09/08/19 04:46 Nebulizer management .Routine 09/08/19 07:30 Omeprazole [PriLOSEC] 40 mg PO ACB 09/08/19 08:00 Carvedilol [Coreg] 6.25 mg PO BIDCC 09/08/19 09:00 Doxycycline Hyclate 100 mg PO DAILY Folic Acid 1 mg PO DAILY Magnesium Oxide 400 mg PO DAILY Multivit,Ther Iron,Ca,FA & Min [Multivitamin W/Minerals] 1 tab PO DAILY Thiamine [Vitamin B1] 100 mg PO DAILY 09/08/19 09:09 Speech Therapy Eval & Treat .Routine 09/08/19 09:12 Banatrol Plus Routine 09/08/19 11:42 Dysphagia Level 6 Soft & Bite-Sized Foods 09/08/19 17:30 Iron Polysaccharide Complex [Ferrex 150] 150 mg PO QPMCC 09/09/19 00:34 Stool Culture and EHEC Urgent 09/11/19 07:57 Consult to Physician [CONS] Routine 09/11/19 08:07 Fall Risk CONT 09/11/19 08:49 Urinalysis Routine 09/11/19 09:00 Citalopram [Celexa] 20 mg PO DAILY Furosemide [Lasix] 40 mg PO BID 09/11/19 09:45 Norepinephrine Bitartrate [Levophed] 16 mg 0.9 % Sodium Chloride [Sodium Chloride 0.9%] 234 ml IV Q24HP 09/12/19 05:00 Complete Blood Count Man Dif DAILY Inpatient Panel DAILY 09/12/19 08:00 US retroperitoneal comp Routine Transfer Discharge Sum: A/P - Problem Maintenance (1) Chronic combined systolic and diastolic CHF, NYHA class 4 Status: Chronic Comment: rLVEF 15% with AICD Grade III/III D/Dysfx End stage cardiomyopathy with low BP - Plan Functional capacity at transfer: bed bound Overall status at transfer: patient is not back to baseline Disposition: [facility]
--- NOTE | 2019-09-11 13:17 | XRay Report ---
CLINICAL INFORMATION: Vomiting. Abdominal distention. TECHNIQUE: Portable supine abdomen COMPARISON: None. FINDINGS: Bowel gas pattern is unremarkable. There is small bowel gas without significant dilatation. No evidence for mechanical small bowel obstruction. There are multiple surgical clips. No biliary or portal venous gas. There is no pneumatosis. There is probable hepatic enlargement. Chest is not well-visualized. Patient has history of congestive heart failure. IMPRESSION: Nonspecific and nonobstructive bowel gas pattern Interpreted and Authenticated by: Miguel Dewey 09/11/19
[2019-09-11] MEDS ORDERED: PROMETHAZINE 25 MG/ML VIAL IV PRN (15:23)
[2019-09-11 15:34] LABS: Appearance,Urine HAZY; Bacteria,Urine FEW /hpf (0); Bilirubin,Urine NEG (NEG); Color,Urine AMBER; Culture Indicated,Urine YES; Glucose,Urine (UA) NEGATIVE (NEG); Ketones,Urine NEG (NEG); Leukocyte Esterase,Urine 75 /uL (NEG); Mucus,Urine FEW /hpf (0); Nitrate,Urine NEG (NEG); Protein,Urine 100 mg/dL (NEG); Specific Gravity,Urine 1.015 (1.000-1.035); Urine Blood >=1.0 mg/dL (<0.03); Urine Hyaline Cast 136 /lpf (0-2); Urine RBC > 182 /hpf (0-1); Urine Squamous Epithelial Cell 0 /hpf (0-4); Urine WBC 40 /hpf (0-4); Urobilinogen,Urine NEG (NEG)
[2019-09-11] MEDS: IRON POLYSACCHARIDE COMPLEX 150 MG CAPSULE PO SCH (17:35)
[2019-09-11] MEDS ORDERED: METOCLOPRAMIDE 10 MG/2 ML VIAL IV ONE (18:22)
[2019-09-11] MEDS ORDERED: METOCLOPRAMIDE 10 MG/2 ML VIAL ONE (18:24)
--- NOTE | 2019-09-11 18:57 | XRay Report ---
CLINICAL INFORMATION: Nasogastric tube placement TECHNIQUE: AP lower chest and upper abdomen COMPARISON: Previous examination dated 09/11/2019 FINDINGS: Interval placement of the esophagogastric tube. Tip of the tube is in the gastric body and the side hole is distal to the esophagogastric junction IMPRESSION: Nasogastric tube in the stomach Interpreted and Authenticated by: Miguel Dewey 09/11/19
== END 2019-09-11 19:50 | disposition short-term general hospital (02) | DRG 291 ==
LOC: ED 09:33 → ICU 14:25
PROVIDERS: ADMIT Internal Medicine; ATTEND Internal Medicine